=== PATIENT | male | born 1965 | race Caucasian/White ===

== ENCOUNTER 2020-05-11 15:10 | Inpatient (IN) | payer OTHER, SELFPAY ==
[2020-05-11] VITALS (23 sets, daily range): BP systolic 108–164; BP diastolic 24–113; PULSE 110–129; RESP 11–110; TEMP 37.1–38.2; O2SAT 94–100; BMI 21.2
--- NOTE | ~2020-05-11 | XR_ITS ---
EXAMINATION: XR chest 2V 05/11/2020 17:43 INDICATION: Weakness and lightheadedness. PROCEDURE: 2 view chest COMPARISON: No prior studies for comparison. FINDINGS: The lungs are clear. The cardiomediastinal silhouette is within normal limits. There are no pleural effusions. There is no pneumothorax suspected. IMPRESSION: 1: NO ACUTE CARDIOPULMONARY DISEASE. Reviewed, dictated and finalized at location A. NG COURT REPORTER
--- NOTE | ~2020-05-11 | CT_ITS ---
EXAMINATION: CT thoracic spine w con DATE: 05/13/2020 18:55 INDICATION: Mid back abscess. TECHNIQUE: Computed tomography (CT) of the thoracic spine was performed with 100 cc Omnipaque 350 int ravenous contrast. The dose-length product was 682.95 mGy-cm. Automated exposure control and iterativ e reconstruction technique were employed. COMPARISON: None FINDINGS: There is phlegmonous change of the back soft tissues in the area of clinical concern indica samia by overlying BB. No discrete walled off fluid collection is identified. There is a small right pl eural effusion with right lower lobe airspace disease which may represent atelectasis or pneumonia. V ertebral body heights are maintained. There is mild lower thoracic spondylosis. No osteolytic or oste oblastic lesions are identified. There are a few locules of gas contained in the area of phlegmonous change, likely from recent intervention. No significant spinal stenosis is identified. No focal abnor mal contrast enhancement of the spinal canal or cord. IMPRESSION: 1. Extensive soft tissue phlegmonous change overlying the thoracic spine with ill-defined margins, co mpatible with known infection. No discrete walled off fluid collection to suggest abscess. 2: No definite involvement of the spinal canal is identified. 3: Right lower lobe airspace disease may represent atelectasis and/or pneumonia. 4: Small right pleural effusion. Reviewed, dictated and finalized at location A. RINARY VIROLOGIST IMPRESSION: 1. Extensive soft tissue phlegmonous change overlying the thoracic spine with i ll-defined margins, compatible with known infection. No discrete walled off flu id collection to suggest abscess. 2: No definite involvement of the spinal canal is identified. 3: Right lower lobe airspace disease may represent atelectasis and/or pneumoni a. 4: Small right pleural effusion.
--- NOTE | ~2020-05-11 | US_ITS ---
US right upper quadrant INDICATION: Right upper quadrant pain PROCEDURE: Realtime right upper abdominal ultrasound. COMPARISON: No prior studies for comparison. FINDINGS: The pancreas is normal without focal mass or pancreatic ductal dilation. Liver echotexture is normal without focal mass or intrahepatic biliary dilatation. There is normal directional flow i n the portal vein. There are gallstones. Mild gallbladder wall thickening. Common bile duct measures 7.4 mm. Trace macy cholecystic fluid. Positive sonographic Malone's sign. IMPRESSION: 1: Cholelithiasis with mild gallbladder wall thickening, trace pericholecystic fluid and positive son ographic Malone's sign. Findings compatible with cholecystitis in the appropriate clinical setting. Reviewed, dictated and finalized at location B. T SHOP CHIEF CLERK IMPRESSION: 1: Cholelithiasis with mild gallbladder wall thickening, trace pericholecystic fluid and positive sonographic Malone's sign. Findings compatible with cholecys titis in the appropriate clinical setting.
--- NOTE | ~2020-05-11 | US_ITS ---
EXAMINATION: US venous doppler LE EXAM DATE: 05/12/2020 09:26 INDICATION: Bilateral leg edema. TECHNIQUE: Multiple grayscale, color flow and Doppler images of the lower extremity deep venous syste ms bilaterally were obtained and reviewed. There is no prior study for comparison. FINDINGS: Right side: The right common femoral, femoral and profunda veins demonstrate normal color flow, respi ratory variation, augmentation and compressibility. Compressibility, color flow confirmed within the right popliteal, posterior tibial, peroneal, and greater saphenous veins. Left side: The left common femoral, femoral and profunda veins demonstrate normal color flow, respira tory variation, augmentation and compressibility. Compressibility, color flow confirmed within the l eft popliteal, posterior tibial, peroneal, and greater saphenous veins. IMPRESSION: 1. No lower extremity deep venous thrombosis bilaterally. Reviewed, dictated and finalized at location D. GE AIDE
--- NOTE | ~2020-05-11 | CT_ITS ---
EXAMINATION: CT brain wo con EXAM DATE: 05/12/2020 11:40 INDICATION: Dysphasia. Lightheadedness. New onset weakness. Back abscess. TECHNIQUE: Spiral CT of the head was performed without contrast. Axial, coronal and sagittal images were reviewed. The dose-length product (DLP) for this examination was 605.33 mGy-cm. The exposure w as tailored according to patient size, and iterative reconstruction (ASIR) was used as additional dos e reduction technique. There is no prior study for comparison. FINDINGS: There is no acute intraparenchymal hemorrhage. No evidence of intraparenchymal brain mass lesion. No evidence of acute infarction. There is no mass effect or midline shift. The ventricles are normal in size. There are no extra-axial collections. There are no acute calvarial fractures. T he orbits are unremarkable. Soft tissue is unremarkable. Mild to moderate ethmoid mucoperiosteal th ickening. IMPRESSION: 1. No acute intracranial findings. Reviewed, dictated and finalized at location B. RVISOR LIVESTOCK YARD
--- NOTE | ~2020-05-11 | MR_ITS ---
EXAMINATION: MR cervical spine wo/w con DATE: 05/15/2020 13:29 INDICATION: Abscess of the posterior thorax. TECHNIQUE: Magnetic resonance imaging (MRI) of the cervical spine was performed without and with 14 m L MultiHance intravenous contrast. Sequences included sagittal and axial T2-weighted FSE, sagittal T2 -weighted FS FSE, and sagittal and axial T1-weighted FSE. Postcontrast sequences included sagittal an d axial T1-weighted FS FSE. COMPARISON: None FINDINGS: There is levoscoliosis of cervicothoracic spine. There is 2 mm retrolisthesis of C6 on C7. Vertebral body heights are normal. There is mildly decreased disc height at C6-C7. The spinal cord si gnal intensity is normal. The following disc levels are specifically discussed: C2-C3: The disc does not extend beyond the endplate margin. There is mild left uncovertebral joint os teoarthritis. There is moderate bilateral facet joint osteoarthritis. There is mild left neural garcía inal stenosis. There is no central canal stenosis. C3-C4: The disc does not extend beyond the endplate margin. There is mild left uncovertebral joint os teoarthritis. There is moderate bilateral facet joint osteoarthritis. There is mild left neural garcía inal stenosis. There is no central canal stenosis. C4-C5: The disc does not extend beyond the endplate margin. There is no uncovertebral joint osteoarth ritis. There is mild bilateral facet joint osteoarthritis. There is no neural foraminal stenosis. The re is no central canal stenosis. C5-C6: There is a right central protrusion. There is no uncovertebral joint osteoarthritis. There is mild left facet joint osteoarthritis. There is no neural foraminal stenosis. There is no central sunitha l stenosis. C6-C7: The disc is bulging. There is moderate bilateral uncovertebral joint osteoarthritis. There is mild right and moderate left facet joint osteoarthritis. There is mild bilateral neural foraminal bk nosis. There is mild central canal stenosis. C7-T1: The disc does not extend beyond the endplate margin. There is no uncovertebral joint osteoarth ritis. There is moderate bilateral facet joint osteoarthritis. There is mild bilateral neural foramin al stenosis. There is no central canal stenosis. IMPRESSION: 1. Mild cervical spondylosis. Reviewed, dictated and finalized at location A. ND WORKER
--- NOTE | ~2020-05-11 | MR_ITS ---
EXAMINATION: MR thoracic spine wo/w con DATE: 05/15/2020 13:29 INDICATION: Abscess of the posterior thorax. TECHNIQUE: Magnetic resonance imaging (MRI) of the thoracic spine was performed without and with 14 m L MultiHance intravenous contrast. Sequences included sagittal and axial T2-weighted FSE, sagittal T2 -weighted FS FSE, and sagittal and axial T1-weighted FSE. Postcontrast sequences included sagittal an d axial T1-weighted FS FSE. COMPARISON: Thoracic spine CT 05/13/2020 FINDINGS: There are small pleural effusions, right worse than left. There is 10 degrees levoscoliosis of thoracic spine. There is mild chronic anterior wedging of T8 and T9 vertebral bodies. There are S chmorl's nodes at multiple levels. There is mildly decreased disc height at T8-T9 and T9-T10. At T4-T 5, there is a left central extrusion with mild central canal stenosis. At T6-T7 and T7-T8, there are central extrusions with mild central canal stenosis. There is multilevel mild facet joint osteoarthri tis. No neural foraminal stenosis. In the posterior thorax, there is a large distribution of subcutan eous fat stranding and contrast enhancement, consistent with cellulitis. There is thickening of right trapezius muscle with increased T2-weighted signal intensity and contrast enhancement, consistent wi th myositis. There is a skin defect to the right of midline at T9-T10. Subjacent to the skin defect, there is an infiltrative distribution of nonenhancing subcutaneous fat measuring 5.2 x 2.3 x 8.5 cm, consistent with necrosis. IMPRESSION: 1. Extensive distribution of subcutaneous cellulitis in the posterior thorax and myositis in right tr apezius muscle. An infiltrative distribution of nonenhancing subcutaneous fat deep to the skin defect is consistent with necrosis, but the degree to which the necrosis is drainable is uncertain. 2. Small pleural effusions. 3. Mild thoracic spondylosis. Reviewed, dictated and finalized at location A. NG TIER IMPRESSION: 1. Extensive distribution of subcutaneous cellulitis in the posterior thorax an d myositis in right trapezius muscle. An infiltrative distribution of nonenhanc ing subcutaneous fat deep to the skin defect is consistent with necrosis, but t he degree to which the necrosis is drainable is uncertain. 2. Small pleural effusions. 3. Mild thoracic spondylosis.
--- NOTE | ~2020-05-11 | MR_ITS ---
EXAMINATION: MR lumbar spine wo/w con DATE: 05/15/2020 13:27 INDICATION: Abscess of the back. TECHNIQUE: Magnetic resonance imaging (MRI) of the lumbar spine was performed without and with 14 mL MultiHance intravenous contrast. Sequences included sagittal T2-weighted FSE, sagittal T2-weighted FS FSE, and sagittal and axial T1-weighted FSE. Postcontrast sequences included axial T2-weighted FSE a nd axial and sagittal T1-weighted FS FSE. COMPARISON: None FINDINGS: Bone alignment is normal. Vertebral body heights and intervertebral disc heights are normal . The discs do not extend beyond the endplate margins. There is multilevel facet joint osteoarthritis , severe on the right at L4-L5 and L5-S1. No neural foraminal stenosis or central canal stenosis. The re is extensive edema and enhancement of the subcutaneous fat and bilateral erector spinae muscles, c onsistent with cellulitis and myositis. There is no coalescence of the areas of hypoenhancing or none nhancing subcutaneous fat to suggest a significant drainable component. IMPRESSION: 1. Extensive cellulitis of the subcutaneous fat and extensive myositis involving the bilateral erecto r spinae muscles. No coalescence of the hypoenhancing and nonenhancing areas of subcutaneous fat to s uggest a significant drainable component. Reviewed, dictated and finalized at location A. K MANAGER IMPRESSION: 1. Extensive cellulitis of the subcutaneous fat and extensive myositis involvin g the bilateral erector spinae muscles. No coalescence of the hypoenhancing and nonenhancing areas of subcutaneous fat to suggest a significant drainable comp onent.
--- NOTE | ~2020-05-11 | US_ITS ---
EXAMINATION: US carotid duplex BI DATE: 05/12/2020 15:32 INDICATION: Dysphasia. TECHNIQUE: Grayscale, color Doppler, and pulsed Doppler images of the cervical carotid arteries were obtained. The degree of vessel stenosis is placed in one of the following categories: normal, <50%, 5 0-69%, >=70% but less than near-occlusion, near-occlusion, or total occlusion. Note that percent sten osis relative to normal distal artery lumen diameter is indirectly measured from velocity measurement s as described by Sebastian, et al. Radiology 2003; [id number]. COMPARISON: None. FINDINGS: RIGHT: The right common carotid artery (CCA) peak systolic velocity (PSV) is 122 cm/s. The right internal ca rotid artery (ICA) PSV is 80 cm/s. The right ICA end-diastolic velocity (EDV) is 23 cm/s. The right I CA/CCA PSV ratio is 0.7. Grayscale and color Doppler images yield an estimate of <50% diameter reduct ion from plaque in the ICA. There is antegrade flow in the right vertebral artery. LEFT: The left CCA PSV is 157 cm/s. The left ICA PSV is 55 cm/s. The left ICA EDV is 15 cm/s. The left ICA/ CCA PSV ratio is 0.5. Grayscale and color Doppler images yield an estimate of <50% diameter reduction from plaque in the ICA. There is antegrade flow in the left vertebral artery. IMPRESSION: 1. <50% stenosis in the right internal carotid artery. 2. <50% stenosis in the left internal carotid artery. Reviewed, dictated and finalized at location A. A MARKETING MANAGER
--- NOTE | 2020-05-11 16:11 | ED.WOUNDLAC ---
HPI - Wound/Laceration General Chief Complaint: Wound/Laceration Stated Complaint: Boil on Back Time Seen by Provider: 05/11/20 16:01 Source: patient Mode of arrival: ambulatory Limitations: no limitations History of Present Illness HPI narrative: Patient is a 54-year-old male who presents complaining of an abscess to his back x1 week. He reports it started very small and has doubled in size and tenderness x1 day. Denies known drainage. Patient has had a history of abscesses in the past and had surgical removal and debridement of abscess to right hip with skin grafting and wound VAC last year. He reports 4-month stay in the hospital. He also reports history of diabetes and 60 pound weight loss in the past year along with generalized weakness, neuropathy and dizziness. Patient reports he does not have a PCP but is scheduled for a new team at the [facility] with first appointment tomorrow. Patient reports seeing urgent care earlier today and they reported they were not draining abscess as he felt he needed surgical intervention. Patient also has a history of psoriasis and is complaining of discomfort to back. He denies taking [id number]-[id number] medications at this time. Related Data Allergies Allergy/AdvReac Type Severity Reaction Status Date / Time No Known Allergies Allergy Verified 05/11/20 15:56 Review of Systems Review of Systems: Narrative: CONSTITUTIONAL: Denies fever, chills, or sweats. EYES: Denies visual changes, redness, or discharge. ENT: Denies rhinorrhea, congestion, sore throat, or otalgia. CARDIOVASCULAR: Denies chest pain, palpitations, or edema. RESPIRATORY: Denies cough or dyspnea. GASTROINTESTINAL: Denies abdominal pain, nausea, vomiting, or diarrhea. GENITOURINARY: Denies dysuria or hematuria. SKIN: Reports abscess to back MUSCULOSKELETAL: Denies back pain, joint pain, or myalgia. NEUROLOGIC: Denies headache, numbness, dizziness, or weakness. PSYCHIATRIC: Denies anxiety or depression. [facility] Past Medical History Medical History Abscess Diabetes Encounter for debridement of skin Encounter for management of vacuum-assisted closure (VAC) of wound Gall stones HTN (hypertension) Neuropathy Weight loss Surgical History Surgical History H/O skin graft Family History Family History Other Heart disease Social History Social History Smoking status: Current every day smoker Alcohol intake: current Alcohol use details: occasional Substance use: never Living arrangements: alone Occupation/Education: unemployed Exam Narrative: Exam Narrative: GENERAL: Well-developed, alert and in no acute distress. HEAD: Normocephalic, atraumatic. EYES: Conjunctiva are normal. ENT: Mucous membranes pink and moist. CHEST: No respiratory distress. Clear to auscultation. HEART: Regular rate and rhythm. GI: Soft, nontender without rebound, or guarding. No distention. Bowel sounds normal in all quadrants. MUSCULOSKELETAL: No bony tenderness. EXTREMITIES: Normal range of motion. No edema. SKIN: Approximate 8 cm abscess to right back, erythema and edema noted, tenderness with palpation NEURO: No focal deficits. Alert and oriented x3. Gait steady. PSYCH: Normal affect. No signs of depression or anxiety. Course Reevaluation(s) Reevaluation #1: Discussed with Dr. Freitas who ultrasounded abscess on patient's back, decision made to attempt drainage her ultrasound results. Approximate 1.5 cm incision made, small amount of drainage noted, wound packed at this time. Date: 05/11/20 Time: 18:14 Consultations Consultation #1: Spoke with Dr. Guerrero for consult on abscess. Patient to be made NPO at midnight as discussed with Dr. Guerrero. Date: 05/11/20 Time: 19:28 Vital Signs Vital signs: Vital Signs
--- NOTE | 2020-05-11 16:53 | PC.NURSE ---
BEEF BONER AT BEDSIDE FOR I&D
--- NOTE | 2020-05-11 17:17 | PC.NURSE ---
verbal order from ERIN Barba for 1G Ofirmev iv stat for fever of 100.7
[2020-05-11 17:28] LABS: Basophils Absolute Auto 0.1 K/mm3 (0.0-0.1); Basophils Percent Auto 0.5 % (0.2-1.2); Eosinophils Absolute Auto 0.3 K/mm3 (0-0.3); Eosinophils Percent Auto 1.6 % (0-4.4); Hematocrit 43.1 % (42.0-52.0); Hemoglobin 14.6 g/dL (14.0-18.0); Immature Granulocyte Absolute 0.12 K/mm3 (0.00-0.031); Immature Granulocyte Percent A 0.7 % (0-0.5); Lymphocytes Absolute Auto 0.85 K/mm3 (0.9-3.2); Lymphocytes Percent Auto 5.1 % (18.3-44.2); Mean Corpuscular HGB Conc 33.9 g/dl (32-36); Mean Corpuscular Hemoglobin 31.1 pg (26-34); Mean Corpuscular Volume 91.9 fl (80-100); Monocytes Absolute Auto 1.2 K/mm3 (0.1-0.6); Neutrophils Absolute Auto 14.2 K/mm3 (1.3-6.7); Neutrophils Percent Auto 85.1 % (45.5-73.1); Platelet Count Result 213 k/mm3 (150-375); Red Blood Count 4.69 M/mm3 (4.6-6.20); Red Cell Distribution Width 11.9 % (11.5-14.5); White Blood Count 16.7 K/mm3 (4.5-10.0)
[2020-05-11 17:34] LABS: Alanine Aminotransferase 14 U/L (4-50); Albumin Level 3.9 g/dL (3.5-5.1); Alkaline Phosphatase 115 U/L (38-126); Anion Gap 11 mmol/L (8-16); Aspartate Amino Transferase 22 U/L (17-59); Bilirubin,Total 0.7 mg/dL (0.2-1.3); Blood Urea Nitrogen 22 mg/dL (9-20); Calcium 9.7 mg/dL (8.4-10.2); Carbon Dioxide 23 mmol/L (22-30); Chloride 96 mmol/L (98-107); Estimated CRCL calculation 95 ml/min; Estimated Glomerular Filt Rate > 60; Glucose 358 mg/dL (75-110); Sodium 130 mmol/L (137-145)
--- NOTE | 2020-05-11 17:34 | PC.NURSE ---
PT UNABLE TO PROVIDE URINE SAMPLE, REFUSING CATH.
--- NOTE | 2020-05-11 17:58 | PC.NURSE ---
PT C/O ACID REFLUX, IP LITIGATION ASSOCIATE YODIT VERBAL ORDER FOR STAT IVP FAMOTIDINE 20MG.
--- NOTE | 2020-05-11 17:58 | PC.NURSE ---
DRY COLOR MIXER YODIT AND EDP NAST AT BEDSIDE.
[2020-05-11] MEDS: FAMOTIDINE 20 MG/2 ML VIAL IV PUSH (18:07)
--- NOTE | 2020-05-11 18:08 | PC.NURSE ---
This RN at bedside with EDP Nast and CERTIFIED SURGICAL TECHNOLOGIST Jameson for second attempt I&D.
[2020-05-11 18:14] LABS: Lactic Acid Reflex 1.7 mmol/L (0.7-2.1)
--- NOTE | 2020-05-11 18:20 | PC.NURSE ---
per julita torres nursing sup at [facility]
[2020-05-11 19:52] LABS: Add Urine Microscopic? YES; Appearance Urine Clear (Clear); Bilirubin Urine Negative (Negative); Blood Urine Negative (Negative); Color Urine Yellow (Yellow); Glucose Urine UA 3+ mg/dL (Negative); Ketones Urine 1+ mg/dL (Negative); Leukocyte Esterase Ur Negative LEU/UL (Negative); Mucus Urine Rare /lpf; Nitrate Urine Negative (Negative); Protein Urine 2+ mg/dL (Negative); RBC Urine 0-2 /hpf (0-2); Specific Grav Ur 1.029 (1.001-1.035); Urobilinogen Urine Negative mg/dL (<2.0); WBC Urine 0-3 /hpf
--- NOTE | 2020-05-11 20:00 | PM.IMHP ---
H&P: HPI History of Present Illness Date/Time: 05/11/20 20:00 Chief Complaint: ?Boil on back.? Narrative: This is a 54-year-old male with poorly controlled insulin-dependent type 2 diabetes mellitus, psoriasis, and history of MRSA skin and soft tissue infection who presented to the emergency department earlier today via private vehicle from home for evaluation of a ?boil on back.? About a week ago he noticed a small boil in the middle of his back which has rapidly progressed in size. He was seen at urgent care today and they referred him to the emergency department as the area in question apparently is now measuring approximately 8 cm in size. With further questioning he had a similar area on his left hip sometime last year and was hospitalized at the [facility] in [place] with a large MRSA infection, requiring multiple debridements, wound VAC, and ultimate skin graft. He admits that he tends to pick and scratch at his skin, including this boil, and thinks that is why it has gotten so big. It was incised and drained in the emergency department and reportedly 20 mL of purulent drainage was expressed and sent for culture. The tight pain that he felt that the site has improved significantly with I and D and he has no specific complaints at the time my evaluation. He specifically denies fever, chills, sweats, nausea, and vomiting. Review of Systems Review of Systems: Narrative: Twelve systems were reviewed with pertinent positives and negatives as per HPI. He has lost about 70 lb in the little over a year unintentionally. Reports forming cataract. It sounds as though his diabetes has been poorly controlled for at least that long, if not longer. He does not check his glucose at home very often and frequently has blurry vision, polydipsia, and polyuria. He suffers from neuropathy in his hands, feet, and legs. Additionally he thinks he has neuropathy on his chest but it sounds like he may have post herpetic neuralgia by description, as he had shingles in this area not long ago. He feels off balance when ambulating, possibly due to the neuropathy, and reports that it has been worse since his 4 month hospitalization last year in [place] with the left hip infection. He gets lightheaded and dizzy quite frequently and has ?fainting spells?, but none in the last several weeks. He has not had chest pain, palpitations, pleuritic pain, or shortness of breath. No cold or flu symptoms. He denies nausea, vomiting, and diarrhea. He does have cholelithiasis and occasionally has gallbladder attacks. Additionally he reports bilateral inguinal hernias. [facility] or hernias until his psoriasis and diabetes are better controlled. He has been having issues with depression due to COVID restrictions, and reports having a suicidal ideation in April 2019. With treatment he has improved and denies harmful thoughts. Except as documented, all other systems were reviewed and are negative. [facility] Past Medical History Medical History (Updated 05/11/20 @ 22:01 by Chela Segura PA-C) Bilateral inguinal hernia Cholelithiasis Diabetic peripheral neuropathy Hypertension Insulin dependent type 2 diabetes mellitus MRSA infection (~2019) Skin and soft tissue infection about the left hip requiring several debridements, wound VAC, and ultimate skin graft. Psoriasis Surgical History Surgical History (Updated 05/11/20 @ 21:50 by Chela Segura PA-C) History of skin graft (~2019) Status post debridement (~2019) Left hip MRSA infection. Family History Family History (Updated 05/11/20 @ 21:50 by Chela Segura PA-C) Mother Heart disease Social History Social History (Updated 05/11/20 @ 21:51 by Chela Segura PA-C) Social History: Surrogate decision maker: Sean Ascencio, brother. Code status: Full code. Smoking status: Former smoker Alcohol intake: current Alcohol use details: Rare alcohol use on social occas
[2020-05-11 20:38] LABS: Glucose Point of Care 347 (65-105)
--- NOTE | 2020-05-11 22:03 | ADMGEN ---
This patient, Rudy Ascencio, was admitted to Medical Room 345-01. Patient/family oriented to hospital policies and general routines including ID bracelet, bed and alarms, visiting hours, pain management, procedures, bathroom and other care routines, personal items, smoking policy, room service/diet, and visiting hours. Information on how to activate the Rapid Response Team has been discussed. Patient/Family are encouraged to report perceived risks to care and to ask questions if they do not understand what they are told or what they should do.
[2020-05-12 00:32] LABS: Glucose Point of Care 480 (65-105)
[2020-05-12] MEDS: HYDROcodone/acetaminophen (*CRX) 5-325 MG TABLET 1 TAB PO ×3 (00:35→18:28)
[2020-05-12 00:36] VITALS: PULSE 113
[2020-05-12] MEDS: carvediloL 3.125 MG TABLET PO ×3 (00:36→20:05)
[2020-05-12] MEDS: MELATONIN 3 MG TABLET 9 MG PO ×2 (00:36→20:05)
[2020-05-12 00:49] LABS: Hemoglobin A1C 11.5 % (<5.7)
[2020-05-12 04:55] VITALS: BP 124/70; PULSE 104; RESP 16; TEMP 36.3; O2SAT 98
[2020-05-12] MEDS: INSULIN GLARGINE (*BKC) 100 UNITS/ML 10 UNITS SUB-Q (05:27)
[2020-05-12] MEDS: INSULIN ASPART (*BKC) 100 UNITS/ML 6 UNITS SUB-Q (05:28)
[2020-05-12 06:21] LABS: Anion Gap 7 mmol/L (8-16); Blood Urea Nitrogen 22 mg/dL (9-20); CRP 24.2 mg/dL (<1.0); Calcium 8.8 mg/dL (8.4-10.2); Carbon Dioxide 24 mmol/L (22-30); Chloride 99 mmol/L (98-107); Estimated CRCL calculation 86 ml/min; Estimated Glomerular Filt Rate > 60; Glucose 447 mg/dL (75-110); Magnesium 1.8 mg/dL (1.6-2.3); Potassium 4.5 mmol/L (3.4-5.0); Sodium 130 mmol/L (137-145)
[2020-05-12 06:37] LABS: Mean Corpuscular HGB Conc 34.4 g/dl (32-36); Mean Corpuscular Hemoglobin 31.2 pg (26-34); Mean Corpuscular Volume 90.7 fl (80-100); Mean Platelet Volume 10.4 fl (7.4-10.4); Platelet Count Result 189 k/mm3 (150-375); Red Blood Count 3.53 M/mm3 (4.6-6.20); Red Cell Distribution Width 11.7 % (11.5-14.5); White Blood Count 16.1 K/mm3 (4.5-10.0)
[2020-05-12 07:12] LABS: Thyroid Stimulating Hormone Reflex 0.653 uIU/mL (0.465-4.68)
[2020-05-12 07:45] LABS: Glucose Point of Care 338 (65-105)
[2020-05-12] MEDS: PREGABALIN (*CRX) 75 MG CAPSULE 150 MG PO (08:39)
[2020-05-12] MEDS: metFORMIN HCL 500 MG TABLET PO (08:39)
[2020-05-12 08:40] VITALS: PULSE 97
[2020-05-12] MEDS: QUEtiapine FUMARATE 100 MG TABLET PO (08:40)
[2020-05-12] MEDS: DULoxetine HCL 60 MG CAPSULE.DR PO (08:40)
[2020-05-12] MEDS: PANTOPRAZOLE SOD SESQUIHYDRATE 20 MG TAB PO (08:40)
[2020-05-12] MEDS: INSULIN ASPART (*BKC) 100 UNITS/ML SUB-Q ×3 (08:42→17:25)
--- NOTE | 2020-05-12 08:43 | PM.CNGS ---
Assessment and Plan Assessment and plan (1) Abscess of back: Code(s): L02.212 - Cutaneous abscess of back [any part, except buttock] Status: Acute Assessment and Plan: cont local wound care, await cx, cont abx (2) Insulin dependent type 2 diabetes mellitus: Code(s): E11.9 - Type 2 diabetes mellitus without complications; Z79.4 - bed bug exterminator (current) use of insulin Status: Acute Assessment and Plan: tight bs control History of Present Illness Consult details Consult date: 05/12/20 Reason for consult: wound care Requesting physician: Hortencia Herron PA-C Narrative: Pt is a 54 y/o M c multiple med issues including poorly controlled DM presenting c large abscess of mid back. Pt reports abscess has been progressively worsening over last wk. Pt reports it has grown significantly in size and is quite painful. Pt had I and D in ED yesterday and reports pressure/pain is much improved. Pt had abscess in L hip about a year ago that ended up needing multiple debridements and subsequent skin graft. Pt reports previous abscess was confirmed MRSA. Review of Systems Constitutional: Constitutional: Denies anorexia, Denies chills, Reports fatigue, Denies fever(s), Reports lethargy, Denies malaise, Denies poor appetite, Reports weakness, Denies weight gain and Denies weight loss Eyes: Eyes: Reports no additional eye complaints ENT: Reports system reviewed and no additional complaints, except as documented Cardiovascular: Cardiovascular: Reports no additional cardiovascular complaints Respiratory: Respiratory: Reports no additional respiratory complaints Gastrointestinal: Gastrointestinal: Reports no additional gastrointestinal complaints Genitourinary: Genitourinary: Reports no additional male genitourinary complaints Musculoskeletal: Musculoskeletal: Reports as per HPI Integumentary/Breasts: Skin/Breast: Reports as per HPI Neurologic: Reports system reviewed and no additional complaints, except as documented Psychiatric: Psychiatric: Reports no additional psychiatric complaints Endocrine: Endocrine: Reports no additional endocrine complaints Hematologic/Lymphatic: Hematologic/Lymphatic: Reports no additional hematologic/lymphatic complaints Allergic/Immunologic: Allergic/Immunologic: Reports no additional allergic/immunologic complaints [facility] Past Medical History Medical History Bilateral inguinal hernia Cholelithiasis Diabetic peripheral neuropathy Hypertension Insulin dependent type 2 diabetes mellitus MRSA infection (~2019) Skin and soft tissue infection about the left hip requiring several debridements, wound VAC, and ultimate skin graft. Psoriasis Surgical History Surgical History History of skin graft (~2019) Status post debridement (~2019) Left hip MRSA infection. Family History Family History Mother Heart disease COPD (chronic obstructive pulmonary disease) Social History Social History Social History: Surrogate decision maker: Sean Ascencio, brother. Code status: Full code. Smoking status: Former smoker Alcohol intake: former Alcohol use details: Rare alcohol use on social occasions, and moderation. Substance use: never Living arrangements: alone Additional living arrangements comments: Resides in [place]. Occupation/Education: unemployed Additional occupation/education comments: Currently unemployed. 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 Gender identity (if verbalized by the patient): Male Sexual Orientation (if Verbalized by the Patient): Straight or Heterosexual Spiritual care concerns: No Meds Home Medications and Allergies Home Medications Medication Instructions Recorded Confirmed Type ac
[2020-05-12 09:51] LABS: Glucose Point of Care 300 (65-105)
--- NOTE | 2020-05-12 11:03 | P.PNIM_ITS ---
Progress Note: A&P Assessment and Plan (1) Sepsis: Code(s): A41.9 - Sepsis, unspecified organism Status: Acute Assessment and Plan: The patient meets sepsis criteria on admission with tachycardia, fever, and le ukocytosis in the setting of infection secondary to absess of back. Lactic acid levels within normal limits. T-max of 100.7?. He has been afebrile today. * Continue IV antibiotics for abscess * Blood cultures pending. * Monitor vital signs closely and trend labs * Resume IV fluids (2) Abscess of back: Code(s): L02.212 - Cutaneous abscess of back [any part, except buttock] Status: Acute Assessment and Plan: Approximately 8 cm. S/p I&D in emergency department on 05/11/2020. Continues to endorse pain but reports improvement. He does have a history of skin abscesses with confirmed MRSA infection. * Wound cultures were collected during incision and drainage and are pending * Appreciate general surgery consultation. * Continue imipenem and vancomycin per antibiotic stewardship recommendations for suspected MRSA coverage given history. * Analgesics available as needed for pain (3) Episode of generalized weakness: Code(s): R53.1 - Weakness Status: Acute Assessment and Plan: Patient had sudden, acute onset of generalized weakness and lethargy as well as dysphasia. Please see interval history below for further details. Etiology not clear at this time. Acute CVA considered, though no focal neuro deficits noted. * Obtain stat head CT. Await results for further intervention/planning. Consider neurology consultation based on results * Stat EKG * Check TSH, B12, folate, ammonia, HIV * He will need PT/OT but will await further information at this time. * IV fluid rehydration. (4) Insulin dependent type 2 diabetes mellitus: Code(s): E11.9 - Type 2 diabetes mellitus without complications; Z79.4 - ore tester (current) use of insulin Status: Acute Assessment and Plan: Poorly controlled. A1c 11.5 (05/11/2020). Blood sugars evaluated and have been as high as 480. No anion gap. Urine ketones 1+ on 05/11/20. * Continue Accu-Cheks a.c. HS, high dose SSI, and hypoglycemic protocol * Initiate Lantus qHS * Monitor blood sugar trends. Can consider addition of scheduled NovoLog with meals. * Check beta hydroxybutyrate * Strict glycemic control is imperative for wound healing. (5) Hypertension: Code(s): I10 - Essential (primary) hypertension Status: Inactive Assessment and Plan: Blood pressure evaluated and has been well controlled today. Last BP 124/70. * Continue Coreg (6) Weight loss: Code(s): R63.4 - Abnormal weight loss Status: Acute Assessment and Plan: Patient reports unintentional 70 lb weight loss in 1 year. Etiology unclear at this time. He reports no changes in his diet. * Check TSH, HIV, fecal occult blood * CXR with no concerning findings. Will consider CT abdomen/pelvis based on results of labs (7) Normocytic anemia: Code(s): D64.9 - Anemia, unspecified Status: Acute Assessment and Plan: Hemoglobin and hematocrit stable upon presentation with decline today. Vital signs are stable. No signs of acute bleeding. * Monitor H&H closely and transfuse as needed * Will check occult blood, B12, folate, and iron panel (8) Lower extremity edema: Code(s): R60.0 - Localized edema Status: Acute Assessment and Plan: No significant edema junior
--- NOTE | 2020-05-12 11:03 | PM.IMPN ---
Progress Note: A&P Assessment and Plan (1) Sepsis: Code(s): A41.9 - Sepsis, unspecified organism Status: Acute Assessment and Plan: The patient meets sepsis criteria on admission with tachycardia, fever, and leukocytosis in the setting of infection secondary to absess of back. Lactic acid levels within normal limits. T-max of 100.7?. He has been afebrile today. Continue IV antibiotics for abscess Blood cultures pending. Monitor vital signs closely and trend labs Resume IV fluids (2) Abscess of back: Code(s): L02.212 - Cutaneous abscess of back [any part, except buttock] Status: Acute Assessment and Plan: Approximately 8 cm. S/p I&D in emergency department on 05/11/2020. Continues to endorse pain but reports improvement. He does have a history of skin abscesses with confirmed MRSA infection. Wound cultures were collected during incision and drainage and are pending Appreciate general surgery consultation. Continue imipenem and vancomycin per antibiotic stewardship recommendations for suspected MRSA coverage given history. Analgesics available as needed for pain (3) Episode of generalized weakness: Code(s): R53.1 - Weakness Status: Acute Assessment and Plan: Patient had sudden, acute onset of generalized weakness and lethargy as well as dysphasia. Please see interval history below for further details. Etiology not clear at this time. Acute CVA considered, though no focal neuro deficits noted. Obtain stat head CT. Await results for further intervention/planning. Consider neurology consultation based on results Stat EKG Check TSH, B12, folate, ammonia, HIV He will need PT/OT but will await further information at this time. IV fluid rehydration. 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 A1c 11.5 (05/11/2020). Blood sugars evaluated and have been as high as 480. No anion gap. Urine ketones 1+ on 05/11/20. Continue Accu-Cheks a.c. HS, high dose SSI, and hypoglycemic protocol Initiate Lantus qHS Monitor blood sugar trends. Can consider addition of scheduled NovoLog with meals. Check beta hydroxybutyrate Strict glycemic control is imperative for wound healing. (5) Hypertension: Code(s): I10 - Essential (primary) hypertension Status: Inactive Assessment and Plan: Blood pressure evaluated and has been well controlled today. Last BP 124/70. Continue Coreg (6) Weight loss: Code(s): R63.4 - Abnormal weight loss Status: Acute Assessment and Plan: Patient reports unintentional 70 lb weight loss in 1 year. Etiology unclear at this time. He reports no changes in his diet. Check TSH, HIV, fecal occult blood CXR with no concerning findings. Will consider CT abdomen/pelvis based on results of labs (7) Normocytic anemia: Code(s): D64.9 - Anemia, unspecified Status: Acute Assessment and Plan: Hemoglobin and hematocrit stable upon presentation with decline today. Vital signs are stable. No signs of acute bleeding. Monitor H&H closely and transfuse as needed Will check occult blood, B12, folate, and iron panel (8) Lower extremity edema: Code(s): R60.0 - Localized edema Status: Acute Assessment and Plan: No significant edema appreciated on my exam. Venous Doppler negative for DVT bilaterally. (9) Psoriasis: Code(s): L40.9 - Psoriasis, unspecified Status: Acute Assessment and Plan: He has multiple psoriatic plaques. He needs outpatient dermatology follow-up. Subjective Date/time seen: 05/12/20 11:03 Interval history: Date of service: 05/12/2020 Rudy Ascencio is a 54 year male with a history of poorly controlled insulin dependent type
--- NOTE | 2020-05-12 11:17 | ECG_ITS ---
Measurements Intervals [place] Rate: 96 P: 65 GA: 134 QRS: 65 QRSD: 97 T: 40 QT: 353 QTc: 448 Interpretive Statements SINUS RHYTHM BASELINE WANDER- AVF NORMAL ECG Electronically Signed On 05-12-2020 11:56:55 [employer] by Devin Holt D.O.
[2020-05-12] MEDS: SODIUM CHLORIDE 0.9% IV 500 ML 125 ML IV CONT (11:59)
[2020-05-12 12:04] LABS: Ammonia < 9 umol/L (9-30)
[2020-05-12 12:10] LABS: Glucose Point of Care 245 (65-105)
[2020-05-12 12:49] LABS: HIV 1/2 Ab P24 Ag Result Negative (Negative)
[2020-05-12 13:20] LABS: Iron 11 ug/dL (49-181)
[2020-05-12 13:27] LABS: Beta-Hydroxybutyrate/Acetoacetate 0.74 mmol/L (0.02-0.27)
[2020-05-12 13:33] LABS: Percent Iron Saturation 5 % (20-50)
--- NOTE | 2020-05-12 13:57 | WPDNEURCNPN ---
Assessment and Plan Assessment and plan (1) Episode of generalized weakness: Code(s): R53.1 - Weakness Status: Acute (2) Insulin dependent type 2 diabetes mellitus: Code(s): E11.9 - Type 2 diabetes mellitus without complications; Z79.4 - terminal carman (current) use of insulin Status: Acute (3) Psoriasis: Code(s): L40.9 - Psoriasis, unspecified Status: Acute (4) Abscess of back: Code(s): L02.212 - Cutaneous abscess of back [any part, except buttock] Status: Acute Additional Plan diabetic with poor control even though insulin-dependent and now with the infection treatment accordingly has been started will obtain the MRI of the thoracic spine to roll out the extension into the bone Consult date: 05/12/20 Time Seen: 13:00 HPI: Rudy Ascencio is a 54 year old male Admitted to the hospital with the complaints of boil on the back. Patient carries the diagnosis of uncontrolled insulin-dependent type 2 diabetes mellitus with 1. Psoriasis 2. Diabetic peripheral neuropathy 3. Hypertension 4. History of skin grafting in the past along with debridement for the left hip MRSA infection. Evaluation up until now include CBC with WBC 16.1 hemoglobin 11.0 platelet count 189, [place] 130 BUN 22 blood sugar of 447, serum iron only 11 binding capacity 215 saturation only 5 and ammonia less than 9 but CRP 24.2, HIV negative CT of the head negative, and Doppler of lower extremities negative for DVT patient already seen by general surgeon for abscess of the back for which local care has been started Review of Systems Review of Systems: All systems reviewed & are unremarkable except as noted in HPI and below PMFSH Past Medical History Medical History Bilateral inguinal hernia Cholelithiasis Diabetic peripheral neuropathy Hypertension Insulin dependent type 2 diabetes mellitus MRSA infection (~2019) Skin and soft tissue infection about the left hip requiring several debridements, wound VAC, and ultimate skin graft. Psoriasis Surgical History Surgical History History of skin graft (~2019) Status post debridement (~2019) Left hip MRSA infection. Family History Family History Mother Heart disease COPD (chronic obstructive pulmonary disease) Social History Social History Social History: Surrogate decision maker: Sean Ascencio, brother. Code status: Full code. Smoking status: Former smoker Alcohol intake: former Alcohol use details: Rare alcohol use on social occasions, and moderation. Substance use: never Living arrangements: alone Additional living arrangements comments: Resides in [place]. Occupation/Education: unemployed Additional occupation/education comments: Currently unemployed. 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 Gender identity (if verbalized by the patient): Male Sexual Orientation (if Verbalized by the Patient): Straight or Heterosexual Spiritual care concerns: No Meds Home Medications and Allergies Home Medications Medication Instructions Recorded Confirmed Type acetaminophen [Tylenol] 650 mg PO PRN PRN 05/11/20 05/11/20 History apremilast 30 mg PO BID 05/11/20 05/11/20 History carvedilol 3.125 mg PO Q12H 05/11/20 05/11/20 History duloxetine 60 mg PO DAILY 05/11/20 05/11/20 History ibuprofen 600 mg PO Q6H PRN 05/11/20 05/11/20 History melatonin 9 mg PO QPM 05/11/20 05/11/20 History metformin 500 mg PO DAILY 05/11/20 05/11/20 History omeprazole 20 mg PO DAILY 05/11/20 05/11/20 History pregabalin 150 mg PO DAILY 05/11/20 05/11/20 History quetiapine [Seroquel] 100 mg PO DAILY 05/11/20 05/11/20 History Allergies Allergy/AdvReac Type Severity Reaction Status Date / Time No Known Allergies Allergy Verified 05/11/20 15:56 Vi
[2020-05-12 14:00] VITALS: BP 113/59; PULSE 95; RESP 16; TEMP 36.7; O2SAT 96
[2020-05-12 17:17] LABS: Glucose Point of Care 297 (65-105)
[2020-05-12 20:05] VITALS: PULSE 94
[2020-05-12] MEDS: INSULIN GLARGINE (*BKC) 100 UNITS/ML 11 UNITS SUB-Q (20:06)
[2020-05-12 20:09] VITALS: BP 135/58; PULSE 94; RESP 14; TEMP 36.7; O2SAT 99
[2020-05-12 20:28] LABS: Glucose Point of Care 362 (65-105)
[2020-05-13] VITALS (7 sets, daily range): BP systolic 139–147; BP diastolic 64–73; PULSE 86–97; RESP 14–16; TEMP 36–36.4; O2SAT 93–100
[2020-05-13] MEDS: HYDROcodone/acetaminophen (*CRX) 5-325 MG TABLET 1 TAB PO ×3 (06:07→22:39)
[2020-05-13 07:50] LABS: Basophils Absolute Auto 0.1 K/mm3 (0.0-0.1); Basophils Percent Auto 0.4 % (0.2-1.2); Eosinophils Absolute Auto 0.4 K/mm3 (0-0.3); Eosinophils Percent Auto 3.5 % (0-4.4); Hematocrit 32.5 % (42.0-52.0); Hemoglobin 11.2 g/dL (14.0-18.0); Immature Granulocyte Absolute 0.09 K/mm3 (0.00-0.031); Immature Granulocyte Percent A 0.7 % (0-0.5); Lymphocytes Absolute Auto 0.95 K/mm3 (0.9-3.2); Lymphocytes Percent Auto 7.7 % (18.3-44.2); Mean Corpuscular HGB Conc 34.5 g/dl (32-36); Mean Corpuscular Hemoglobin 31.1 pg (26-34); Mean Corpuscular Volume 90.3 fl (80-100); Mean Platelet Volume 10.5 fl (7.4-10.4); Monocytes Absolute Auto 1.1 K/mm3 (0.1-0.6); Monocytes Percent Auto 8.6 % (2.6-8.5); Neutrophils Absolute Auto 9.8 K/mm3 (1.3-6.7); Neutrophils Percent Auto 79.1 % (45.5-73.1); Platelet Count Result 200 k/mm3 (150-375); Red Cell Distribution Width 11.6 % (11.5-14.5); White Blood Count 12.4 K/mm3 (4.5-10.0)
[2020-05-13] MEDS: INSULIN ASPART (*BKC) 100 UNITS/ML SUB-Q ×4 (07:58→17:06)
[2020-05-13 07:59] LABS: Glucose Point of Care 263 (65-105)
[2020-05-13] MEDS: metFORMIN HCL 500 MG TABLET PO (08:02)
[2020-05-13] MEDS: QUEtiapine FUMARATE 100 MG TABLET PO (08:03)
[2020-05-13] MEDS: DULoxetine HCL 60 MG CAPSULE.DR PO (08:03)
[2020-05-13] MEDS: carvediloL 3.125 MG TABLET PO ×2 (08:03→22:40)
[2020-05-13] MEDS: PANTOPRAZOLE SOD SESQUIHYDRATE 20 MG TAB PO (08:03)
[2020-05-13] MEDS: PREGABALIN (*CRX) 75 MG CAPSULE 150 MG PO (08:07)
[2020-05-13 08:16] LABS: Vancomycin Trough 9.6 ug/mL (10.0-20.0)
[2020-05-13 12:01] LABS: Glucose Point of Care 330 (65-105)
--- NOTE | 2020-05-13 12:07 | P.PNIM_ITS ---
Progress Note: A&P Assessment and Plan (1) Sepsis: Code(s): A41.9 - Sepsis, unspecified organism Status: Acute Assessment and Plan: The patient meets sepsis criteria on admission with tachycardia, fever, and le ukocytosis in the setting of infection secondary to absess of back. Lactic acid 1.7. T-max of 100.7?. He has been afebrile today. Leukocytosis improving. * Continue IV antibiotics * Monitor vital signs closely and trend labs (2) Bacteremia: Code(s): R78.81 - Bacteremia Status: Acute Assessment and Plan: Blood cultures demonstrate S. aureus in 2/2 bottles. Suspect MRSA given history. Source of infection is likely abscess. * Continue IV Vancomycin and Primaxin. * Await susceptibility results. * Consult to infectious disease. Recommendations appreciated. (3) Abscess of back: Code(s): L02.212 - Cutaneous abscess of back [any part, except buttock] Status: Acute Assessment and Plan: Approximately 8 cm. S/p I&D in emergency department on 05/11/2020. Continues to endorse pain but reports improvement. He does have a history of skin abscesses with confirmed MRSA infection in the past. Wound cultures growing Staph aureus. * Appreciate general surgery consultation. Subsequent I&D being considered based on patient's progression. * Continue imipenem and vancomycin per antibiotic stewardship recommendations for suspected MRSA coverage given history. * Analgesics available as needed for pain * MRI cervical, thoracic, and lumbar spine ordered to ensure infection has not penetrated GASKET WINDER, especially in light of clinical findings including suddent onset truncal instability and weakness. (4) Episode of generalized weakness: Code(s): R53.1 - Weakness Status: Acute Assessment and Plan: On 05/12/20, patient had sudden, acute onset of generalized weakness and lethargy with truncal instability as well as dysphasia. He had no focal neuro deficits. Etiology not clear at this time. Head CT negative for acute findings. EKG was unremarkable. TSH, B12, Folate, ammonia wnl. Additional considerations include GASKET WINDER infection secondary to back abscess/bacteremia. Symptoms have improved significantly today. * Appreciate neurology consultation * MRI ordered as noted above. * He will likely benefit from PT/OT but will await further information at this time. (5) Insulin dependent type 2 diabetes mellitus: Code(s): E11.9 - Type 2 diabetes mellitus without complications; Z79.4 - residential (current) use of insulin Status: Acute Assessment and Plan: Poorly controlled. A1c 11.5 (05/11/2020). Blood sugars evaluated and have been as high as 480. No anion gap. Urine ketones 1+ on 05/11/20. beta hydroxybutyrate only slightly elevated. Do not suspect DKA. Blood sugars better today but still very elevated. * Continue Accu-Cheks a.c. HS, high dose SSI, and hypoglycemic protocol * Continue Lantus qHS, increase to 20 units * Add 5 units novolog scheduled with meals. * Monitor blood sugar trends. * Strict glycemic control is imperative for wound healing. (6) Hypertension: Code(s): I10 - Essential (primary) hypertension Status: Inactive Assessment and Plan: Blood pressure evaluated and has been well controlled today. Last BP 145/67. * Continue Coreg (7) Weight loss: Code(s): R63.4 - Abnormal weight loss Status: Acute Assessment and Plan: Patient reports unintentional 70 lb weight loss in 1 year. Etiology unclear at this time.
--- NOTE | 2020-05-13 12:07 | PM.IMPN ---
Progress Note: A&P Assessment and Plan (1) Sepsis: Code(s): A41.9 - Sepsis, unspecified organism Status: Acute Assessment and Plan: The patient meets sepsis criteria on admission with tachycardia, fever, and leukocytosis in the setting of infection secondary to absess of back. Lactic acid 1.7. T-max of 100.7?. He has been afebrile today. Leukocytosis improving. Continue IV antibiotics Monitor vital signs closely and trend labs (2) Bacteremia: Code(s): R78.81 - Bacteremia Status: Acute Assessment and Plan: Blood cultures demonstrate S. aureus in 2/2 bottles. Suspect MRSA given history. Source of infection is likely abscess. Continue IV Vancomycin and Primaxin. Await susceptibility results. Consult to infectious disease. Recommendations appreciated. (3) Abscess of back: Code(s): L02.212 - Cutaneous abscess of back [any part, except buttock] Status: Acute Assessment and Plan: Approximately 8 cm. S/p I&D in emergency department on 05/11/2020. Continues to endorse pain but reports improvement. He does have a history of skin abscesses with confirmed MRSA infection in the past. Wound cultures growing Staph aureus. Appreciate general surgery consultation. Subsequent I&D being considered based on patient's progression. Continue imipenem and vancomycin per antibiotic stewardship recommendations for suspected MRSA coverage given history. 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 (4) Episode of generalized weakness: Code(s): R53.1 - Weakness Status: Acute Assessment and Plan: On 05/12/20, patient had sudden, acute onset of generalized weakness and lethargy with truncal instability as well as dysphasia. He had no focal neuro deficits. Etiology not clear at this time. Head CT negative for acute findings. EKG was unremarkable. TSH, B12, Folate, ammonia wnl. Additional considerations include SERVICE DESK TECHNICIAN infection secondary to back abscess/bacteremia. Symptoms have improved significantly today. Appreciate neurology consultation MRI ordered as noted above. He will likely benefit from PT/OT but will await further information at this time. (5) Insulin dependent type 2 diabetes mellitus: Code(s): E11.9 - Type 2 diabetes mellitus without complications; Z79.4 - snf (current) use of insulin Status: Acute Assessment and Plan: Poorly controlled. A1c 11.5 (05/11/2020). Blood sugars evaluated and have been as high as 480. No anion gap. Urine ketones 1+ on 05/11/20. beta hydroxybutyrate only slightly elevated. Do not suspect DKA. Blood sugars better today but still very elevated. Continue Accu-Cheks a.c. HS, high dose SSI, and hypoglycemic protocol Continue Lantus qHS, increase to 20 units Add 5 units novolog scheduled with meals. Monitor blood sugar trends. Strict glycemic control is imperative for wound healing. (6) Hypertension: Code(s): I10 - Essential (primary) hypertension Status: Inactive Assessment and Plan: Blood pressure evaluated and has been well controlled today. Last BP 145/67. Continue Coreg (7) Weight loss: Code(s): R63.4 - Abnormal weight loss Status: Acute Assessment and Plan: Patient reports unintentional 70 lb weight loss in 1 year. Etiology unclear at this time. He reports no changes in his diet. TSH wnl. HIV negative. Fecal occult blood testing has been ordered but uncollected. CXR with no concerning findings. Will consider CT abdomen/pelvis based on results of labs (8) Normocytic anemia: Code(s): D64.9 - Anemia, unspecified Status: Acute Assessment and Plan: Hemoglobin and hematocrit stable upon presentation with slight decline foll
[2020-05-13 12:43] LABS: Alanine Aminotransferase 12 U/L (4-50); Albumin Level 2.9 g/dL (3.5-5.1); Alkaline Phosphatase 92 U/L (38-126); Anion Gap 8 mmol/L (8-16); Aspartate Amino Transferase 16 U/L (17-59); Bilirubin,Total 0.3 mg/dL (0.2-1.3); Blood Urea Nitrogen 18 mg/dL (9-20); Calcium 8.5 mg/dL (8.4-10.2); Carbon Dioxide 24 mmol/L (22-30); Chloride 100 mmol/L (98-107); Estimated CRCL calculation 125 ml/min; Estimated Glomerular Filt Rate > 60; Glucose 285 mg/dL (75-110); Potassium 4.1 mmol/L (3.4-5.0); Sodium 132 mmol/L (137-145)
[2020-05-13 12:57] LABS: CRP 22.4 mg/dL (<1.0)
--- NOTE | 2020-05-13 13:09 | PM.PNGS ---
Progress Note: A&P Assessment and Plan (1) Abscess of back: Code(s): L02.212 - Cutaneous abscess of back [any part, except buttock] Status: Acute Assessment and Plan: Continue daily dressing changes and IV antibiotics. Abscess may need larger I and D if he is not showing signs of improvement. Will reassess tomorrow and if becoming larger will consider bedside I&D. Subjective Subjective Date/Time Seen: 05/13/20 13:09 Interval history: Still having some pain on his back. Not much drainage. Exam Back/Spine/Pelvis: Back/spine/pelvis image: 1. 4 cm x 3 cm area of induration with mild erythema, minimal purulence drainage from small I&D incision Objective Data Vital Signs Vital Signs: Vital Signs - 24 hr 05/12/20 14:00 05/12/20 20:05 05/12/20 20:09 Temperature 36.7 C 36.7 C Pulse Rate 95 94 94 Respiratory Rate 16 14 Blood Pressure 113/59 L 135/58 L Pulse Oximetry 96 99 05/13/20 05:56 05/13/20 08:00 05/13/20 08:03 Temperature 36.0 C L Pulse Rate 97 97 97 Respiratory Rate 14 14 Blood Pressure 145/67 H Pulse Oximetry 97 97 05/13/20 10:14 Temperature Pulse Rate Respiratory Rate Blood Pressure Pulse Oximetry 93 Intake/Output Intake/Output: Intake & Output 05/10/20 05/11/20 05/12/20 05/13/20 23:59 23:59 23:59 23:59 Intake Total 350 2100 700 Output Total 1450 Balance 350 2100 -750 Meds/Results Medications: Active Medications Generic Name Dose Route Start Last Admin Trade Name Freq PRN Reason Stop Dose Admin Acetaminophen 650 mg 05/11/20 23:46 Acetaminophen 325 Mg Tablet PO Q4H PRN Fever Hydrocodone Bitart/Acetaminophen 1 tab 05/11/20 18:45 05/13/20 06:07 Hydrocodone/Acetaminophen (*Crx) 5-325 Mg Tablet PO 1 tab Q4H PRN Administration Pain Rated 4-6 Carvedilol 3.125 mg 05/11/20 23:50 05/13/20 08:03 Carvedilol 3.125 Mg Tablet PO 3.125 mg Q12HR BRANT Administration Dextrose 12.5 gm 02/04/21 22:08 Dextrose 50% 25 Gm/50 Ml Syringe IV PUSH PRN PRN Hypoglycemia Protocol Duloxetine HCl 60 mg 05/12/20 09:00 05/13/20 08:03 Duloxetine Hcl 60 Mg Capsule.Dr PO 60 mg DAILY BRANT Administration Glucagon 1 mg 05/11/20 22:08 Glucagon For Inj 1 Mg Vial IM PRN PRN Hypoglycemia Protocol Glucose 15 gm 05/11/20 22:08 Glucose Oral Gel 15 Gm Of Glucse In 37.5 Gm Tube PO PRN PRN Hypoglycemia Protocol Imipenem/Cilastatin Sodium 500 mg in 100 mls @ 300 mls/hr 05/12/20 00:00 05/13/20 12:40 Primaxin 500 Mg/D5w 100 Ml IVPB 300 mls/hr Q6H BRANT Administration Dextrose 1,000 mls @ 100 mls/hr 05/11/20 22:08 Dextrose 5% 1,000 Ml IVPB PRN PRN Hypoglycemia Protocol Vancomycin HCl 1,750 mg in 500 mls @ 250 mls/hr 05/13/20 09:00 05/13/20 09:41 Vancomycin 1,750 Mg/D5w 500 Ml IVPB 250 mls/hr Q12H BRANT Administration Insulin Aspart 4 - 8 units 05/12/20 08:00 05/13/20 11:41 Insulin Aspart (*Bkc) 100 Units/Ml SUB-Q 6 units TIDWM BRANT Administration Protocol Insulin Glargine 11 units 05/12/20 21:00 05/12/20 20:06 Insulin Glargine (*Bkc) 100 Units/Ml 0.15 units/kg (11 units) 11 units SUB-Q Administration HS BRANT Melatonin 9 mg 05/12/20 00:05 05/12/20 20:05 Melatonin 3 Mg Tablet PO 9 mg HS BRANT Administration Metformin HCl 500 mg 05/12/20 08:00 05/13/20 08:02 Metformin Hcl 500 Mg Tablet PO 500 mg DAILY@0800 BRANT Administration Pantoprazole Sodium 20 mg 05/12/20 09:00 05/13/20 08:03 Pantoprazole Sod Sesquihydrate 20 Mg Tab PO 20 mg QAM BRANT Administration Pregabalin 150 mg 05/12/20 09:00 05/13/20 08:07 Pregabalin (*Crx) 75 Mg Capsule PO 150 mg DAILY BRANT Administration Quetiapine Fumarate 100 mg 05/12/20 09:00 05/13/20 08:03 Quetiapine Fumarate 100 Mg Tablet PO 100 mg DAILY BRANT Administration Radiology Results: ITS Impressions Chest X-Ray
[2020-05-13] MEDS: MORPHINE SULFATE (*CRX) 2 MG/ML INJ IV PUSH (13:55)
[2020-05-13 16:40] LABS: Glucose Point of Care 269 (65-105)
[2020-05-13] MEDS: MELATONIN 3 MG TABLET 9 MG PO (22:39)
[2020-05-13] MEDS: INSULIN GLARGINE (*BKC) 100 UNITS/ML 20 UNITS SUB-Q (22:39)
[2020-05-13 22:50] LABS: Glucose Point of Care 284 (65-105)
[2020-05-14 05:57] VITALS: BP 143/72; PULSE 84; RESP 12; TEMP 36.3; O2SAT 97
[2020-05-14 06:38] LABS: Basophils Absolute Auto 0.1 K/mm3 (0.0-0.1); Basophils Percent Auto 0.5 % (0.2-1.2); Eosinophils Absolute Auto 0.4 K/mm3 (0-0.3); Eosinophils Percent Auto 3.7 % (0-4.4); Hematocrit 31.7 % (42.0-52.0); Hemoglobin 11.1 g/dL (14.0-18.0); Immature Granulocyte Absolute 0.11 K/mm3 (0.00-0.031); Lymphocytes Absolute Auto 1.25 K/mm3 (0.9-3.2); Lymphocytes Percent Auto 11.2 % (18.3-44.2); Mean Corpuscular Hemoglobin 31.1 pg (26-34); Mean Corpuscular Volume 88.8 fl (80-100); Mean Platelet Volume 10.3 fl (7.4-10.4); Monocytes Absolute Auto 1.2 K/mm3 (0.1-0.6); Monocytes Percent Auto 10.3 % (2.6-8.5); Neutrophils Absolute Auto 8.2 K/mm3 (1.3-6.7); Neutrophils Percent Auto 73.3 % (45.5-73.1); Platelet Count Result 220 k/mm3 (150-375); Red Blood Count 3.57 M/mm3 (4.6-6.20); Red Cell Distribution Width 11.6 % (11.5-14.5); White Blood Count 11.2 K/mm3 (4.5-10.0)
[2020-05-14] MEDS: HYDROcodone/acetaminophen (*CRX) 5-325 MG TABLET 1 TAB PO ×2 (07:17→21:44)
[2020-05-14 07:55] LABS: Anion Gap 2 mmol/L (8-16); Blood Urea Nitrogen 12 mg/dL (9-20); Calcium 8.3 mg/dL (8.4-10.2); Carbon Dioxide 30 mmol/L (22-30); Chloride 101 mmol/L (98-107); Estimated CRCL calculation 147 ml/min; Estimated Glomerular Filt Rate > 60; Glucose 260 mg/dL (75-110); Potassium 4.1 mmol/L (3.4-5.0); Sodium 133 mmol/L (137-145)
[2020-05-14 08:00] VITALS: PULSE 97; RESP 12; O2SAT 97
[2020-05-14 08:03] LABS: IFOB Positive Control Positive; Immunochemical Fecal Occult Bl Negative (N)
[2020-05-14 08:05] LABS: CRP 13.9 mg/dL (<1.0)
[2020-05-14] MEDS: INSULIN ASPART (*BKC) 100 UNITS/ML SUB-Q ×5 (08:13→17:27)
--- NOTE | 2020-05-14 08:25 | PC.NURSE ---
Patient refuses bed alarm. Reviewed fall precautions with patient and patient still wants alarm to remain off. Bed alarm off.
[2020-05-14 08:38] LABS: Glucose Point of Care 250 (65-105)
[2020-05-14] MEDS: DULoxetine HCL 60 MG CAPSULE.DR PO (09:06)
[2020-05-14] MEDS: metFORMIN HCL 500 MG TABLET PO (09:06)
[2020-05-14 09:07] VITALS: PULSE 97
[2020-05-14] MEDS: carvediloL 3.125 MG TABLET PO ×2 (09:07→20:11)
[2020-05-14] MEDS: QUEtiapine FUMARATE 100 MG TABLET PO (09:07)
[2020-05-14] MEDS: PANTOPRAZOLE SOD SESQUIHYDRATE 20 MG TAB PO (09:07)
[2020-05-14] MEDS: PREGABALIN (*CRX) 75 MG CAPSULE 150 MG PO (09:11)
[2020-05-14 11:40] LABS: Glucose Point of Care 198 (65-105)
--- NOTE | 2020-05-14 12:10 | PM.PNGS ---
Progress Note: A&P Assessment and Plan (1) Abscess of back: Code(s): L02.212 - Cutaneous abscess of back [any part, except buttock] Status: Acute Assessment and Plan: Abscess not improving much yet. Needs to be opened up further. Will proceed with I&D of back abscess at bedside today. Patient understands and agrees. Subjective Subjective Date/Time Seen: 05/14/20 12:10 Interval history: Still having back pain and drainage from abscess. Exam Skin: Other: 4cm x 4cm mid back abscess with persistent purulent drainage from small opening. There is still some fluctuance to inferior portion of abscess. Mild surrounding erythema. Objective Data Vital Signs Vital Signs: Vital Signs - 24 hr 05/13/20 14:00 05/13/20 19:44 05/13/20 22:40 Temperature 36.4 C 36.4 C L Pulse Rate 86 94 96 Respiratory Rate 16 14 Blood Pressure 139/73 147/64 H Pulse Oximetry 97 100 05/14/20 05:57 05/14/20 09:07 Temperature 36.3 C L Pulse Rate 84 97 Respiratory Rate 12 Blood Pressure 143/72 H Pulse Oximetry 97 Intake/Output Intake/Output: Intake & Output 05/11/20 05/12/20 05/13/20 05/14/20 23:59 23:59 23:59 23:59 Intake Total 350 2100 1500 600 Output Total 2200 400 Balance 350 2100 -700 200 Meds/Results Medications: Active Medications Generic Name Dose Route Start Last Admin Trade Name Freq PRN Reason Stop Dose Admin Acetaminophen 650 mg 05/11/20 23:46 Acetaminophen 325 Mg Tablet PO Q4H PRN Fever Hydrocodone Bitart/Acetaminophen 1 tab 05/11/20 18:45 05/14/20 07:17 Hydrocodone/Acetaminophen (*Crx) 5-325 Mg Tablet PO 1 tab Q4H PRN Administration Pain Rated 4-6 Carvedilol 3.125 mg 05/11/20 23:50 05/14/20 09:07 Carvedilol 3.125 Mg Tablet PO 3.125 mg Q12HR BRANT Administration Dextrose 12.5 gm 05/11/20 22:08 Dextrose 50% 25 Gm/50 Ml Syringe IV PUSH PRN PRN Hypoglycemia Protocol Duloxetine HCl 60 mg 05/12/20 09:00 05/14/20 09:06 Duloxetine Hcl 60 Mg Capsule. PO 60 mg DAILY BRANT Administration Glucagon 1 mg 05/11/20 22:08 Glucagon For Inj 1 Mg Vial IM PRN PRN Hypoglycemia Protocol Glucose 15 gm 05/11/20 22:08 Glucose Oral Gel 15 Gm Of Glucse In 37.5 Gm Tube PO PRN PRN Hypoglycemia Protocol Dextrose 1,000 mls @ 100 mls/hr 05/11/20 22:08 Dextrose 5% 1,000 Ml IVPB PRN PRN Hypoglycemia Protocol Vancomycin HCl 1,750 mg in 500 mls @ 250 mls/hr 05/13/20 09:00 05/14/20 08:19 Vancomycin 1,750 Mg/D5w 500 Ml IVPB 250 mls/hr Q12H BRANT Administration Insulin Aspart 4 - 8 units 05/12/20 08:00 05/14/20 08:13 Insulin Aspart (*Bkc) 100 Units/Ml SUB-Q 4 units TIDWM BRANT Administration Protocol Insulin Aspart 5 units 05/13/20 17:00 05/14/20 08:14 Insulin Aspart (*Bkc) 100 Units/Ml 0.067 units/kg (5 units) 5 units SUB-Q Administration TIDWM [facility] Insulin Glargine 20 units 05/13/20 21:00 05/13/20 22:39 Insulin Glargine (*Bkc) 100 Units/Ml SUB-Q 20 units HS BRANT Administration Melatonin 9 mg 05/12/20 00:05 05/13/20 22:39 Melatonin 3 Mg Tablet PO 9 mg HS BRANT Administration Metformin HCl 500 mg 05/12/20 08:00 05/14/20 09:06 Metformin Hcl 500 Mg Tablet PO 500 mg DAILY@0800 BRANT Administration Pantoprazole Sodium 20 mg 05/12/20 09:00 05/14/20 09:07 Pantoprazole Sod Sesquihydrate 20 Mg Tab PO 20 mg QAM BRANT Administration Pregabalin 150 mg 05/12/20 09:00 05/14/20 09:11 Pregabalin (*Crx) 75 Mg Capsule PO 150 mg DAILY BRANT Administration Quetiapine Fumarate 100 mg 05/12/20 09:00 05/14/20 09:07 Quetiapine Fumarate 100 Mg Tablet PO 100 mg DAILY BRANT Administration Radiology Results: ITS Impressions Chest X-Ray 05/11/20 17:47 IMPRESSION: 1: NO ACUTE CARDIOPULMONARY DISEASE. Venous Doppler Study 05/12/20 09:29 IMPRESSION: 1. No lower extremity deep venous throm
--- NOTE | 2020-05-14 12:53 | P.OP_ITS ---
Procedure Note - Detailed Date of procedure: 05/14/20 Pre-op diagnosis: back abscess Post-op diagnosis: same Procedure performed: incision and drainage of complicated back abscess Description of procedure: * patient was positioned in left lateral decubitus position in hospital bed. Time-out was done to confirm patient and procedure. His back was prepped with Betadine prep. 1% lidocaine with epinephrine was infiltrated locally around the back abscess. An 11 blade scalpel was used to extend the small wound opening in the upper portion of the abscess down inferiorly to a total length of about 4 cm. The incision was carried down to the abscess cavity. There were multiple loculations that were carefully broken up using scissors and a Q-tip. About 3-5 cc of purulence fluid was drained from underneath the skin. The wound was then packed with half-inch iodoform gauze. 4 x 4 gauze and Medipore tape were applied. Anesthesia: local ( 1% lidocaine with epinephrine) Surgeon: Emil Ramirez DO Estimated blood loss (mL): 5 Packing: Yes ( 1/2 inch iodoform gauze) Complications: No immediate complications Condition: stable Disposition: no change
--- NOTE | 2020-05-14 13:02 | PM.IMPN ---
Progress Note: A&P Assessment and Plan (1) Sepsis: Code(s): A41.9 - Sepsis, unspecified organism Status: Acute Assessment and Plan: The patient met sepsis criteria on admission with tachycardia, fever, and leukocytosis in the setting of infection secondary to absess of back. Lactic acid 1.7. T-max of 100.7?. He has been afebrile >48 hours. Leukocytosis improving. Continue IV antibiotics Monitor vital signs closely and trend labs (2) Bacteremia: Code(s): R78.81 - Bacteremia Status: Acute Assessment and Plan: Blood cultures demonstrate S. aureus in 2/2 bottles. Suspect MRSA given history. Source of infection is likely abscess. Continue IV Vancomycin. Primaxin discontinued per ID recommendations. . Await susceptibility results. Infectious disease has been consulted and recommendations are appreciated. (3) Abscess of back: Code(s): L02.212 - Cutaneous abscess of back [any part, except buttock] Status: Acute Assessment and Plan: Approximately 8 cm. S/p I&D in emergency department on 05/11/2020. He does have a history of skin abscesses with confirmed MRSA infection in the past. Wound cultures growing Staph aureus. Now s/p bedside I&D by Dr. Ramirez today. Appreciate general surgery consultation. Continue vancomycin for suspected MRSA coverage given history. 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 Therefore thoracic CT obtained which did show extensive soft tissue phlegmonous changes with ill-defined margins and no definite involvement of the spinal canal. Will still attempt to proceed with MRI as this would be a more sensitive diagnostic tool. I had hoped to have this completed after the patient's I&D today while he was still numb, however his pain was severe and he again did not feel he could tolerate this. Plan for MRI when pain is better controlled. (4) Episode of generalized weakness: Code(s): R53.1 - Weakness Status: Acute Assessment and Plan: On 05/12/20, patient had sudden, acute onset of generalized weakness and lethargy with truncal instability as well as dysphasia. He had no focal neuro deficits. Etiology not clear at this time. Head CT negative for acute findings. EKG was unremarkable. TSH, B12, Folate, ammonia wnl. 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 No definite involvement of spinal canal identified on thoracic CT. Symptoms continue to improve and he is no longer having weakness or truncal instability. Appreciate neurology consultation MRI ordered as noted above. Will order PT/OT. Appreciate evaluation (5) Insulin dependent type 2 diabetes mellitus: Code(s): E11.9 - Type 2 diabetes mellitus without complications; Z79.4 - senior care (current) use of insulin Status: Acute Assessment and Plan: Poorly controlled. A1c 11.5 (05/11/2020). Blood sugars evaluated and have been as high as 480. No anion gap. Urine ketones 1+ on 05/11/20. beta hydroxybutyrate only slightly elevated. Do not suspect DKA. Blood sugars better today but still above target. Continue Accu-Cheks ACHS, high dose SSI, and hypoglycemic protocol Continue 20 units Lantus qHS Add 5 units novolog scheduled with meals. Monitor blood sugar trends. Strict glycemic control is imperative for wound healing. (6) Hypertension: Code(s): I10 - Essential (primary) hypertension Status: Inactive Assessment and Plan: Blood pressure evaluated and has been well controlled today, especially given pain. Last BP 143/72. Continue Coreg (7) Weight loss: Code(s): R63.4 - Abnormal weight loss St
[2020-05-14 14:21] VITALS: BP 143/69; PULSE 90; RESP 14; TEMP 36.2; O2SAT 98
[2020-05-14] MEDS: MORPHINE SULFATE (*CRX) 2 MG/ML INJ IV PUSH (14:41)
--- NOTE | 2020-05-14 14:46 | PC.NURSE ---
Patient has several 100 dollar bills laying on bedside table. Patient voiced that he needs an envelope to put $1500s in to give to a person to take downstairs to hand to the person that he is having to pay his rent. I called the charge nurse about this and she voiced that the patient can be taken downstairs by wheelchair to hand the money to the person that he wants to hand the money to. Patient acknowledged understanding.
--- NOTE | 2020-05-14 14:54 | PC.NURSE ---
I offered to have his money locked up (will have charge nurse lock it up) until he could give the money to the person paying his rent and he said no.
[2020-05-14 17:30] LABS: Glucose Point of Care 204 (65-105)
[2020-05-14 20:03] VITALS: BP 155/65; PULSE 91; RESP 14; TEMP 36.3; O2SAT 100
[2020-05-14 20:11] VITALS: PULSE 91
[2020-05-14] MEDS: MELATONIN 3 MG TABLET 9 MG PO (20:12)
[2020-05-14 20:41] LABS: Vancomycin Trough 11.8 ug/mL (10.0-20.0)
[2020-05-14] MEDS: INSULIN GLARGINE (*BKC) 100 UNITS/ML 20 UNITS SUB-Q (21:31)
[2020-05-14 21:50] LABS: Glucose Point of Care 308 (65-105)
[2020-05-15 05:52] LABS: Hematocrit 32.8 % (42.0-52.0); Hemoglobin 11.3 g/dL (14.0-18.0); Mean Corpuscular HGB Conc 34.5 g/dl (32-36); Mean Corpuscular Hemoglobin 30.5 pg (26-34); Mean Corpuscular Volume 88.6 fl (80-100); Mean Platelet Volume 9.9 fl (7.4-10.4); Platelet Count Result 222 k/mm3 (150-375); Red Cell Distribution Width 11.5 % (11.5-14.5); White Blood Count 7.5 K/mm3 (4.5-10.0)
[2020-05-15 06:00] VITALS: BP 172/79; PULSE 86; RESP 12; TEMP 36.4; O2SAT 98
[2020-05-15 06:24] LABS: Anion Gap 3 mmol/L (8-16); Blood Urea Nitrogen 8 mg/dL (9-20); Calcium 8.2 mg/dL (8.4-10.2); Carbon Dioxide 30 mmol/L (22-30); Chloride 103 mmol/L (98-107); Estimated CRCL calculation 131 ml/min; Estimated Glomerular Filt Rate > 60; Glucose 243 mg/dL (75-110); Potassium 3.9 mmol/L (3.4-5.0); Sodium 136 mmol/L (137-145)
[2020-05-15 07:32] LABS: Glucose Point of Care 228 (65-105)
[2020-05-15 08:45] LABS: Glucose Point of Care 218 (65-105)
[2020-05-15] MEDS: MORPHINE SULFATE (*CRX) 2 MG/ML INJ IV PUSH ×2 (08:51→18:33)
--- NOTE | 2020-05-15 10:12 | PM.PNGS ---
Progress Note: A&P Assessment and Plan (1) Abscess of back: Code(s): L02.212 - Cutaneous abscess of back [any part, except buttock] Status: Acute Assessment and Plan: POD#1 I&D of back abscess. Now adequately drained. Continue local wound care with daily packing. (2) Cholelithiasis with chronic cholecystitis: Code(s): K80.10 - Calculus of gallbladder with chronic cholecystitis without obstruction Status: Acute Assessment and Plan: RUQ ultrasound ordered for abdominal pain and showed cholelithiasis with mild gallbladder wall thickening and trace pericholecystic fluid. This has been a chronic issue for the patient and he is not currently having any abdominal pain. He has been following a low fat diet at home and was previously evaluated by a Surgeon at the [facility] for gallstones. He does not appear to have acute cholecystitis. Althouhg, his intermittent abdominal pain does correlate with gallbladder disease and he may benefit from an elective cholecystectomy eventually. I also discussed with the patient that his intermittent abdominal pain could be related to other causes as well. For now, we would recommend that he continue treatment for his acute infection and bacteremia, and then he could be evaluated for an elective laparoscopic cholecystectomy as an outpatient. He can follow-up at the [facility] or with our service after this infection has resolved. I discussed signs of acute cholecystitis and to present to the ER if they occur. The patient is agreeable to this plan. Okay for him to advance to a low fat diet, which should be continued on discharge. (3) Bacteremia: Code(s): R78.81 - Bacteremia Status: Acute Assessment and Plan: + blood cx 2/2 staph aureus. ID consulted. Continue abx per ID. 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 Guerrero. Subjective Subjective Date/Time Seen: 05/15/20 10:12 Post Op day: 1 Patient reports: no new complaints and pain is less Interval history: Patient reports back pain at abscess has improved since yesterday, but still sore. No other new complaints. He does report having some intermittent RUQ abdominal pain that radiates to his mid back for the past year. He feels it is aggravated by eating fatty foods. No nausea or vomiting. Denies abdominal pain today. He states he has had this pain once during his hospitalization here, but no different than what he has been dealing with for the past year. Review of Systems Gastrointestinal: Gastrointestinal: Reports as per HPI, Reports no additional gastrointestinal complaints, Reports abdominal pain, Reports bloating, Denies diarrhea, Denies nausea and Denies vomiting Genitourinary: Genitourinary: Reports other (groin pain) Exam Skin: Other: Upper back abscess with packing in place by the nurse Objective Data Vital Signs Vital Signs: Vital Signs - 24 hr 05/14/20 14:21 05/14/20 20:03 05/14/20 20:11 Temperature 97.1 F L 97.3 F L Pulse Rate 90 91 91 Respiratory Rate 14 14 Blood Pressure 143/69 H 155/65 H Pulse Oximetry 98 100 05/15/20 06:00 Temperature 97.6 F Pulse Rate 86 Respiratory Rate 12 Blood Pressure 172/79 H Pulse Oximetry 98 Intake/Output Intake/Output: Intake & Output 05/12/20 05/13/20 05/14/20 05/15/20 23:59 23:59 23:59 23:59 Intake Total 2100 1500 1340 100 Output Total 2200 700 900 Balance 2100 -700 640 -800 Meds/Results Medications: Active Medications Generic Name Dose Route Start Last Admin Trade Name Freq PRN Reason Stop Dose Admin Acetaminophen 650 mg 05/11/20 23:46 Acetaminophen 325 Mg Tablet PO Q4H PRN Fever Hydrocodone Bitart/Acetaminophen 1 tab 05/11/20 18:45 05/14/20 21:44 Hydrocodone/Acetaminophen (*Crx) 5-325 Mg Tablet PO 1 tab Q4
[2020-05-15 10:54] VITALS: BMI 22.2
[2020-05-15] MEDS: HYDROcodone/acetaminophen (*CRX) 5-325 MG TABLET 1 TAB PO ×2 (11:31→20:22)
--- NOTE | 2020-05-15 12:11 | PM.IMPN ---
Progress Note: A&P Assessment and Plan (1) Sepsis: Code(s): A41.9 - Sepsis, unspecified organism Status: Acute Assessment and Plan: The patient met sepsis criteria on admission with tachycardia, fever, and leukocytosis in the setting of infection secondary to absess of back. Lactic acid 1.7. T-max of 100.7?. He has been afebrile >48 hours. Leukocytosis and tachycardia resolved. Continue IV antibiotics Monitor vital signs closely and trend labs (2) Bacteremia: Code(s): R78.81 - Bacteremia Status: Acute Assessment and Plan: Blood cultures demonstrate methicillin sensitive S. aureus in 2/2 bottles. Source of infection is likely abscess. Begin IV Ancef per ID recommendations. IV Vancomycin and Primaxin discontinued Infectious disease has been consulted and recommendations regarding antibiotic therapy duration are appreciated. (3) Abscess of back: Code(s): L02.212 - Cutaneous abscess of back [any part, except buttock] Status: Acute Assessment and Plan: Approximately 8 cm. S/p I&D in emergency department on 05/11/2020. He does have a history of skin abscesses with confirmed MRSA infection in the past. Wound cultures growing methicillin sensitive Staph aureus. S/p bedside I&D by Dr. Ramirez on 05/14/20. Pain is improving. Appreciate general surgery consultation. 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 Therefore thoracic CT obtained which did show extensive soft tissue phlegmonous changes with ill-defined margins and no definite involvement of the spinal canal. Will still attempt to proceed with MRI as this would be a more sensitive diagnostic tool. Patient willing to attempt MRI today and will await results. (4) Episode of generalized weakness: Code(s): R53.1 - Weakness Status: Acute Assessment and Plan: On 05/12/20, patient had sudden, acute onset of generalized weakness and lethargy with truncal instability as well as dysphasia. He had no focal neuro deficits. Etiology not clear at this time. Head CT negative for acute findings. EKG was unremarkable. TSH, B12, Folate, ammonia wnl. 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 He is no longer having weakness or truncal instability. Appreciate neurology consultation MRI ordered as noted above. Will order PT/OT. Appreciate evaluation (5) Cholelithiasis: Code(s): K80.20 - Calculus of gallbladder without cholecystitis without obstruction Status: Inactive Assessment and Plan: Endorsing RUQ pain and diminished appetite. He has known history of gallstones but was not approved for [facility] by [facility] due to uncontrolled DM. U/S shows cholelithiasis with mild gallbladder wall thickening, trace pericholecystic fluid and positive sonographic Malone sign. Currently NPO General surgery followin and input is appreciated. (6) Weight loss: Code(s): R63.4 - Abnormal weight loss Status: Acute Assessment and Plan: Patient reports unintentional 70 lb weight loss in 1 year. Etiology not entirely clear, however I suspect this is due to ongoing abdominal pain related likely to cholelithiasis. He reports that his pain keeps him in bed 23 hours a day and he has poor appetite. TSH wnl. HIV negative. Fecal occult blood test negative. Patient reports he had colonoscopy and EGD 1 month ago with no acute findings. General surgery following. He will likely need outpatient elective cholec
[2020-05-15 13:47] VITALS: PULSE 84
[2020-05-15] MEDS: carvediloL 3.125 MG TABLET PO ×2 (13:47→20:26)
[2020-05-15] MEDS: DULoxetine HCL 60 MG CAPSULE.DR PO (13:47)
[2020-05-15] MEDS: metFORMIN HCL 500 MG TABLET PO (13:47)
[2020-05-15] MEDS: PANTOPRAZOLE SOD SESQUIHYDRATE 20 MG TAB PO (13:48)
[2020-05-15] MEDS: QUEtiapine FUMARATE 100 MG TABLET PO (13:48)
[2020-05-15] MEDS: PREGABALIN (*CRX) 75 MG CAPSULE 150 MG PO (13:49)
[2020-05-15] MEDS: INSULIN ASPART (*BKC) 100 UNITS/ML SUB-Q ×4 (13:56→17:19)
[2020-05-15 14:00] VITALS: BP 119/64; PULSE 91; RESP 16; TEMP 36.4; O2SAT 100
[2020-05-15 14:01] LABS: Glucose Point of Care 229 (65-105)
--- NOTE | 2020-05-15 14:24 | WPDINFPN2 ---
Progress Note: A&P Assessment and Plan (1) Bacteremia: Code(s): R78.81 - Bacteremia Status: Acute Assessment and Plan: MAURISIO bacteremia with infection, skin source. 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 Subjective Date/time seen: 05/15/20 14:24 Objective Data Vital Signs Vital Signs: Vital Signs - 24 hr 05/14/20 20:03 05/14/20 20:11 05/15/20 06:00 Temperature 36.3 C L 36.4 C Pulse Rate 91 91 86 Respiratory Rate 14 12 Blood Pressure 155/65 H 172/79 H Pulse Oximetry 100 98 05/15/20 13:47 Temperature Pulse Rate 84 Respiratory Rate Blood Pressure Pulse Oximetry Intake/Output Intake/Output: Intake & Output 05/12/20 05/13/20 05/14/20 05/15/20 23:59 23:59 23:59 23:59 Intake Total 2100 1500 1340 600 Output Total 2200 700 900 Balance 2100 -700 640 -300 Meds/Results Medications: Active Medications Generic Name Dose Route Start Last Admin Trade Name Freq PRN Reason Stop Dose Admin Acetaminophen 650 mg 05/11/20 23:46 Acetaminophen 325 Mg Tablet PO Q4H PRN Fever Hydrocodone Bitart/Acetaminophen 1 tab 05/11/20 18:45 05/15/20 11:31 Hydrocodone/Acetaminophen (*Crx) 5-325 Mg Tablet PO 1 tab Q4H PRN Administration Pain Rated 4-6 Carvedilol 3.125 mg 05/11/20 23:50 05/15/20 13:47 Carvedilol 3.125 Mg Tablet PO 3.125 mg Q12HR BRANT Administration Dextrose 12.5 gm 05/11/20 22:08 Dextrose 50% 25 Gm/50 Ml Syringe IV PUSH PRN PRN Hypoglycemia Protocol Dicyclomine HCl 20 mg 05/14/20 14:32 Dicyclomine Hcl 10 Mg Capsule PO QID PRN Abdominal Cramping Duloxetine HCl 60 mg 05/12/20 09:00 05/15/20 13:47 Duloxetine Hcl 60 Mg Capsule.Dr PO 60 mg DAILY BRANT Administration Glucagon 1 mg 05/11/20 22:08 Glucagon For Inj 1 Mg Vial IM PRN PRN Hypoglycemia Protocol Glucose 15 gm 05/11/20 22:08 Glucose Oral Gel 15 Gm Of Glucse In 37.5 Gm Tube PO PRN PRN Hypoglycemia Protocol Dextrose 1,000 mls @ 100 mls/hr 05/11/20 22:08 Dextrose 5% 1,000 Ml IVPB PRN PRN Hypoglycemia Protocol Cefazolin Sodium 1 gm in 50 mls @ 100 mls/hr 05/15/20 12:00 05/15/20 13:51 Ancef 1 Gm/D5w 50 Ml Pm IVPB 100 mls/hr Q8HR BRANT Administration Insulin Aspart 4 - 8 units 05/12/20 08:00 05/15/20 13:56 Insulin Aspart (*Bkc) 100 Units/Ml SUB-Q 4 units TIDWM BRANT Administration Protocol Insulin Aspart 5 units 05/13/20 17:00 05/15/20 13:57 Insulin Aspart (*Bkc) 100 Units/Ml 0.067 units/kg (5 units) 5 units SUB-Q Administration TIDWM [facility] Insulin Glargine 24 units 05/15/20 21:00 Insulin Glargine (*Bkc) 100 Units/Ml SUB-Q HS BRANT Melatonin 9 mg 05/12/20 00:05 05/14/20 20:12 Melatonin 3 Mg Tablet PO 9 mg HS BRANT Administration Metformin HCl 500 mg 05/12/20 08:00 05/15/20 13:47 Metformin Hcl 500 Mg Tablet PO 500 mg DAILY@0800 BRANT Administration Morphine Sulfate 2 mg 05/14/20 13:02 05/15/20 08:51 Morphine Sulfate (*Crx) 2 Mg/Ml Inj IV PUSH 2 mg Q4H PRN Administration Pain Rated 7-10 Pantoprazole Sodium 20 mg 05/12/20 09:00 05/15/20 13:48 Pantoprazole Sod Sesquihydrate 20 Mg Tab PO 20 mg QAM BRANT Administration Pregabalin 150 mg 05/12/20 09:00 05/15/20 13:49 Pregabalin (*Crx) 75 Mg Capsule PO 150 mg DAILY BRANT Administration Quetiapine Fumarate 100 mg 05/12/20 09:00 05/15/20 13:48 Quetiapine Fumarate 100 Mg Tablet PO 100 mg DAILY BRANT Administration Radiology Results: ITS Impressions Chest X-Ray 05/11/20 17:47 IMPRESSION: 1: NO ACUTE CARDIOPULMONARY DISEASE. Venous Doppler Study 05/12/20 09:29 IMPRESSION: 1. No lower extremity deep venous thrombosis bilaterally. Head CT 05/12/20 11:42 IMPRESSION: 1. No acute intracranial findings. Carotid Doppler Study 05/12/20 1
--- NOTE | 2020-05-15 14:35 | CONS_ITS ---
REASON FOR CONSULTATION Bacteremia. HISTORY OF PRESENT ILLNESS A 54-year-old male with psoriasis. For the last month and half, he has been on a biologic in the form of apremilast. ?He had not been on previous biologics, was on topical therapy previously. ?About a year ago, he had a right lateral gluteus infection with MRSA, received IV antibiotics not under my direction. ?He required wound VAC for some 3 months by his description and there was slow healing. ?He was not on long-term antibiotics. ?He was admitted to hospital on May 11 with several days of increasing pain over the lower thoracic spine area with swelling noted of the skin without preceding trauma. ?He has been seen by Neurology and by Dr. Ramirez. ?He was taken to the operating room yesterday, where he underwent incision and drainage of a back abscess. ?Findings included loculations, purulent fluid. ?The wound was left open and packed. ?He was initially given imipenem and vancomycin, now vancomycin day 5. ?He feels somewhat better today. ?He was seen by Neurology for unclear reasons. ?He has known diabetic peripheral neuropathy. ?No fever, chills, sweats. ALLERGIES None known. BODY AFTER ALLERGIES PRESENT MEDICATIONS List reviewed. ?No other immunosuppressants. HABITS Ex-smoker. ?Rare alcohol. ?No illicit drugs. PAST MEDICAL HISTORY Poorly controlled diabetes, skin grafting for the above hip infection, hypertension, gallstones, inguinal hernias, and the psoriasis. REVIEW OF SYSTEMS Skin, constitutional, musculoskeletal, respiratory, GI, otherwise negative. FAMILY HISTORY COPD, heart disease. SOCIAL HISTORY Lives locally. ?Currently unemployed and single. PHYSICAL EXAMINATION GENERAL: ?Thin, not cachectic. ?No respiratory distress. VITAL SIGNS: ?Temperature 38.2 shortly after arrival, otherwise afebrile since, 172/79, 86, 12, 98% on room air. SKIN: Typical psoriasis over torso, arms, and legs. ?In terms of skin area, extensive. NODES: ?No cervical adenopathy. EENT: Conjunctivae are normal. ?Pupils equal, round. NECK: ?No thyromegaly. ?No meningismus. LUNGS: ?Clear to auscultation and percussion. ?Good air entry. BACK: Intraoperative surgical dressing in place. ?I did not remove. ?He has no surrounding erythema. CARDIAC: ?Regular rate and rhythm. ?No murmurs or gallops. ?Pulses 2+. ABDOMEN: Tender right side, nondistended, firm. ?No guarding. EXTREMITIES: No clubbing, cyanosis, edema. ?Defect of skin contour lateral left buttock without any sign of sinus tract erythema or tenderness or fluctuance. LABORATORY DATA Blood cultures 2/2 sets, susceptible Staph aureus and wound culture obtained in the emergency room, same organism. ?White count 7.5, hemoglobin 11.3, platelets 222. ?No differential done recently, earlier showed minimal left shift. ?Sodium is 136, BUN 8, creatinine 0.6. ?His Accu-Cheks in the 200 range. ?His hemoglobin A1c 11.5%, calcium low, but his albumin is 2.9 also. Transaminases low to normal. ?CRP is 8.0, down from 22.4. ?His HIV nonreactive. RADIOLOGY Thoracic and lumbar spine MRI just completed, shows no diskitis nor deep space infection and no residual abscess. ?Cervical spine MRI, spondylosis. Right upper quadrant ultrasound, gallstones. ?Chest x-ray normal. ASSESSMENT 1. Staphylococcus aureus bacteremia, skin source, improving.? 2. Back abscess, perhaps sebaceous cyst that became infected, postop day 1, same organism.? 3. Immunosuppressed.? 4. 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 RECOMMENDATIONS 1. The apremilast will need to be held for the duration of his present illness.? 2. Stop vancomycin, put on Ancef.? 3. Prolonged IV antibiotics anticipated.? 4. Glycemic control.? Thank you very much for asking me to see him
--- NOTE | 2020-05-15 15:18 | PCPTNOTE ---
Attempted PT evaluation. Pt reports he just got back to bed from the chair and is trying to take a nap. Will attempt again tomorrow. Cyndi Rodriguez, FREDYT
[2020-05-15 17:25] LABS: Glucose Point of Care 233 (65-105)
[2020-05-15 20:00] VITALS: BP 157/84; PULSE 96; RESP 16; TEMP 37.2; O2SAT 97
[2020-05-15 20:26] VITALS: PULSE 90
[2020-05-15] MEDS: MELATONIN 3 MG TABLET 9 MG PO (20:32)
[2020-05-15] MEDS: INSULIN GLARGINE (*BKC) 100 UNITS/ML 24 UNITS SUB-Q (20:34)
[2020-05-15 21:48] LABS: Glucose Point of Care 119 (65-105)
[2020-05-16] MEDS: MORPHINE SULFATE (*CRX) 2 MG/ML INJ IV PUSH ×2 (05:59→20:53)
[2020-05-16 06:00] VITALS: BP 150/80; PULSE 83; RESP 18; TEMP 36.6; O2SAT 95
[2020-05-16 06:11] LABS: Hematocrit 36.3 % (42.0-52.0); Hemoglobin 12.3 g/dL (14.0-18.0); Mean Corpuscular HGB Conc 33.9 g/dl (32-36); Mean Corpuscular Hemoglobin 30.4 pg (26-34); Mean Corpuscular Volume 89.6 fl (80-100); Mean Platelet Volume 9.2 fl (7.4-10.4); Platelet Count Result 286 k/mm3 (150-375); Red Blood Count 4.05 M/mm3 (4.6-6.20); Red Cell Distribution Width 11.5 % (11.5-14.5); White Blood Count 8.5 K/mm3 (4.5-10.0)
[2020-05-16 06:26] LABS: Alanine Aminotransferase 13 U/L (4-50); Albumin Level 3.2 g/dL (3.5-5.1); Alkaline Phosphatase 87 U/L (38-126); Anion Gap 3 mmol/L (8-16); Aspartate Amino Transferase 15 U/L (17-59); Bilirubin,Total 0.3 mg/dL (0.2-1.3); Blood Urea Nitrogen 10 mg/dL (9-20); CRP 4.7 mg/dL (<1.0); Calcium 8.7 mg/dL (8.4-10.2); Carbon Dioxide 32 mmol/L (22-30); Chloride 103 mmol/L (98-107); Estimated CRCL calculation 116 ml/min; Estimated Glomerular Filt Rate > 60; Glucose 213 mg/dL (75-110); Sodium 138 mmol/L (137-145)
[2020-05-16 07:44] LABS: Glucose Point of Care 203 (65-105)
[2020-05-16] MEDS: INSULIN ASPART (*BKC) 100 UNITS/ML SUB-Q ×4 (07:45→17:47)
[2020-05-16 08:11] VITALS: PULSE 87
[2020-05-16] MEDS: metFORMIN HCL 500 MG TABLET PO (08:11)
[2020-05-16] MEDS: carvediloL 3.125 MG TABLET PO ×2 (08:11→20:53)
[2020-05-16] MEDS: DULoxetine HCL 60 MG CAPSULE.DR PO (08:12)
[2020-05-16] MEDS: QUEtiapine FUMARATE 100 MG TABLET PO (08:12)
[2020-05-16] MEDS: PANTOPRAZOLE SOD SESQUIHYDRATE 20 MG TAB PO (08:12)
[2020-05-16] MEDS: PREGABALIN (*CRX) 75 MG CAPSULE 150 MG PO (08:14)
--- NOTE | 2020-05-16 10:48 | WPDNEUROPN ---
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 Status: Acute (4) Lower extremity edema: Code(s): R60.0 - Localized edema Status: Acute (5) Abscess of back: Code(s): L02.212 - Cutaneous abscess of back [any part, except buttock] Status: Acute Additional Plan feeling better, pain level is down, no neurological deficit at this stage Review of Systems Review of Systems: All systems reviewed & are unremarkable except as noted in HPI and below Exam Const: General: cooperative, comfortable and no acute distress Limitations: other limitations HENMT: Head: normocephalic Ears: hearing grossly normal bilaterally General nose exam: Normal external nose present Mouth: Yes Normal oral and palatal mucosa present Eyes: General: appearance normal, both eyes and all related structures Neck: Neck: full ROM Resp: Effort & Inspection: able to speak in complete sentences Cardio: Rate: regular rate Neuro: General: patient oriented x3 Cranial nerves: Yes CN's II-XII intact bilaterally Cognition (Neuro): normal cognition Speech: normal speech Sensory Exam: normal sensation Deep tendon reflexes (DTR's): Right triceps reflex intensity grade: 1+, Left triceps reflex intensity grade: 1+, Rt Biceps (C5, C6): 1+, Left biceps reflex intensity grade: 1+, Right brachioradialis reflex intensity grade: 1+, Left brachioradialis reflex intensity grade: 1+, Right patellar reflex intensity grade: 1+, Left patellar reflex intensity grade: 1+, Right ankle reflex intensity grade: 1+ and Left ankle reflex intensity grade: 1+ Plantar Reflex Responses: downgoing: bilateral Psych: Appearance: grossly normal Objective Data Vital Signs Vital Signs: Vital Signs - 24 hr 05/15/20 13:47 05/15/20 14:00 05/15/20 20:00 Temperature 36.4 C L 37.2 C Pulse Rate 84 91 96 Respiratory Rate 16 16 Blood Pressure 119/64 157/84 H Pulse Oximetry 100 97 05/15/20 20:26 05/16/20 06:00 05/16/20 08:11 Temperature 36.6 C Pulse Rate 90 83 87 Respiratory Rate 18 Blood Pressure 150/80 H Pulse Oximetry 95 Intake/Output Intake/Output: Intake & Output 05/13/20 05/14/20 05/15/20 05/16/20 23:59 23:59 23:59 23:59 Intake Total 1500 1340 2070 50 Output Total 2200 700 900 Balance -315 660 5854 50 Meds/Results Medications: Active Medications Generic Name Dose Route Start Last Admin Trade Name Freq PRN Reason Stop Dose Admin Acetaminophen 650 mg 05/11/20 23:46 Acetaminophen 325 Mg Tablet PO Q4H PRN Fever Hydrocodone Bitart/Acetaminophen 1 tab 05/11/20 18:45 05/15/20 20:22 Hydrocodone/Acetaminophen (*Crx) 5-325 Mg Tablet PO 1 tab Q4H PRN Administration Pain Rated 4-6 Carvedilol 3.125 mg 05/11/20 23:50 05/16/20 08:11 Carvedilol 3.125 Mg Tablet PO 3.125 mg Q12HR BRANT Administration Dextrose 12.5 gm 05/11/20 22:08 Dextrose 50% 25 Gm/50 Ml Syringe IV PUSH PRN PRN Hypoglycemia Protocol Dicyclomine HCl 20 mg 05/14/20 14:32 Dicyclomine Hcl 10 Mg Capsule PO QID PRN Abdominal Cramping Duloxetine HCl 60 mg 05/12/20 09:00 05/16/20 08:12 Duloxetine Hcl 60 Mg Capsule.Dr PO 60 mg DAILY BRANT Administration Glucagon 1 mg 05/11/20 22:08 Glucagon For Inj 1 Mg Vial IM PRN PRN Hypoglycemia Protocol Glucose 15 gm 05/11/20 22:08 Glucose Oral Gel 15 Gm Of Glucse In 37.5 Gm Tube PO PRN PRN Hypoglycemia Protocol Dextrose 1,000 mls @ 100 mls/hr 05/11/20 22:08 Dextrose 5% 1,000 Ml IVPB PRN PRN Hypoglycemia Protocol Cefazolin Sodium 1 gm in 50 mls @ 100 mls/hr 05/15/20
--- NOTE | 2020-05-16 11:22 | PM.IMPN ---
Progress Note: A&P Assessment and Plan (1) Sepsis: Code(s): A41.9 - Sepsis, unspecified organism Status: Acute Assessment and Plan: The patient met sepsis criteria on admission with tachycardia, fever, and leukocytosis in the setting of infection secondary to abscess of back. Lactic acid 1.7. T-max of 100.7? 05/11/20. He has been afebrile since 05/11/20. Leukocytosis and tachycardia resolved. Continue IV antibiotics Monitor vital signs closely and trend labs (2) Bacteremia: Code(s): R78.81 - Bacteremia Status: Acute Assessment and Plan: Blood cultures demonstrate methicillin sensitive S. aureus in 2/2 bottles. Source of infection is likely abscess. Continue IV Ancef per ID recommendations (initiated 05/15/20). IV Vancomycin and Primaxin discontinued Infectious disease has been consulted and recommendations regarding antibiotic therapy duration are appreciated. Long-term IV antibiotics are anticipated and care coordination is working on discharge planning. SNF is recommended. (3) Abscess of back: Code(s): L02.212 - Cutaneous abscess of back [any part, except buttock] Status: Acute Assessment and Plan: Approximately 8 cm. S/P I&D in emergency department on 05/11/2020 and S/P bedside I&D by Dr. Ramirez on 05/14/20. Pain is improving. He does have a history of skin abscesses with confirmed MRSA infection in the past. Wound cultures growing methicillin sensitive Staph aureus. Thoracic/lumbar spine MRI performed 05/15/20 demonstrated extensive subcutaneous cellulitis in the posterior thorax and myositis in the right trapezius with no findings to suggest residual abscess, diskitis, or deep space infection. Appreciate general surgery consultation and input. Wound care will be deferred to general surgery. IV Ancef as above with long-term IV antibiotics anticipated per infectious disease recommendations Analgesics available as needed for pain (4) Episode of generalized weakness: Code(s): R53.1 - Weakness Status: Acute Assessment and Plan: On 05/12/20, patient had sudden, acute onset of generalized weakness and lethargy with truncal instability as well as dysphasia. He had no focal neuro deficits. Head CT negative for acute findings. EKG was unremarkable. TSH, B12, Folate, ammonia wnl. MRI cervical, lumbar and thoracic spine shows no evidence of diskitis or deep space infection and symptoms have resolved. He does have mild cervical spondylosis. He notes generalized deconditioning following his prolonged hospital stay approximately 1 year ago but feels better overall. Appreciate neurology consultation Continue PT/OT (5) Cholelithiasis: Code(s): K80.20 - Calculus of gallbladder without cholecystitis without obstruction Status: Inactive Assessment and Plan: Endorsing RUQ pain and diminished appetite. He has known history of gallstones but was not approved for cholecystectomy by [facility] due to uncontrolled DM. U/S shows cholelithiasis with mild gallbladder wall thickening, trace pericholecystic fluid and positive sonographic Malone sign. General surgery following and input is appreciated. Continue low fat diet with elective laparoscopic cholecystectomy outpatient with the [facility] or Dr. Guerrero's group (6) Weight loss: Code(s): R63.4 - Abnormal weight loss Status: Acute Assessment and Plan: Patient reports unintentional 70 lb weight loss in 1 year. Etiology not entirely clear, however I suspect this is due to ongoing abdominal pain related likely to cholelithiasis and poor control of diabetes. He reports that his pain keeps him in bed 23 hours a day and he has poor appetite. TSH wnl. HIV negative. Fecal occult blood test negative. Patient reports he had colonoscopy and EGD 1 month ago with no acute findings. General surgery following. He will likely need outpatient elective cholecystectomy. Can consider CT a
--- NOTE | 2020-05-16 11:42 | PM.PNGS ---
Progress Note: A&P Assessment and Plan (1) Abscess of back: Code(s): L02.212 - Cutaneous abscess of back [any part, except buttock] Status: Acute Assessment and Plan: POD#2 I&D of back abscess. Now adequately drained. Continue local wound care with daily packing. Continue abx per ID. (2) Cholelithiasis with chronic cholecystitis: Code(s): K80.10 - Calculus of gallbladder with chronic cholecystitis without obstruction Status: Acute Assessment and Plan: Stable, no acute issues. Tolerating a low fat diet, recommend continuing this on discharge. F/u with the [facility] or our services as an outpatient regarding possible cholecystectomy. (3) Bacteremia: Code(s): R78.81 - Bacteremia Status: Acute Assessment and Plan: + blood cx 2/2 staph aureus. ID following. Continue abx per ID, expected to be prolonged IV abx therapy. 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 Additional Plan Discussed the patient's plan of care with Dr. Guerrero. Subjective Subjective Date/Time Seen: 05/16/20 11:00 Post Op day: 2 (I&D back abscess) Patient reports: no new complaints and feels better Interval history: Patient reports back pain is improving with overall tenderness. No fever/chills. Review of Systems Review of Systems: All systems reviewed & are unremarkable except as noted in HPI and below Constitutional: Constitutional: Denies chills and Denies fever(s) Exam Const: General: comfortable, no acute distress and alert Orientation/consciousness: patient oriented x3 Skin: Other: I removed the dressing and packing of the upper back abscess, there is about a 4-5 cm open incision with minima slough in the base of the wound, no purulent drainage or tunneling. Some surrounding induration. Erythema improving. Psych: Mental Status: mental status grossly normal Insight: Good insight present (Psych) Judgement: Good judgement present (Psych) Objective Data Vital Signs Vital Signs: Vital Signs - 24 hr 05/15/20 13:47 05/15/20 14:00 05/15/20 20:00 Temperature 97.5 F L 99.0 F Pulse Rate 84 91 96 Respiratory Rate 16 16 Blood Pressure 119/64 157/84 H Pulse Oximetry 100 97 05/15/20 20:26 05/16/20 06:00 05/16/20 08:11 Temperature 97.8 F Pulse Rate 90 83 87 Respiratory Rate 18 Blood Pressure 150/80 H Pulse Oximetry 95 Intake/Output Intake/Output: Intake & Output 05/13/20 05/14/20 05/15/20 05/16/20 23:59 23:59 23:59 23:59 Intake Total 1500 1340 2070 50 Output Total 2200 700 900 Balance -403 941 1596 50 Meds/Results Medications: Active Medications Generic Name Dose Route Start Last Admin Trade Name Freq PRN Reason Stop Dose Admin Acetaminophen 650 mg 05/11/20 23:46 Acetaminophen 325 Mg Tablet PO Q4H PRN Fever Hydrocodone Bitart/Acetaminophen 1 tab 05/11/20 18:45 05/15/20 20:22 Hydrocodone/Acetaminophen (*Crx) 5-325 Mg Tablet PO 1 tab Q4H PRN Administration Pain Rated 4-6 Carvedilol 3.125 mg 05/11/20 23:50 05/16/20 08:11 Carvedilol 3.125 Mg Tablet PO 3.125 mg Q12HR BRANT Administration Dextrose 12.5 gm 05/11/20 22:08 Dextrose 50% 25 Gm/50 Ml Syringe IV PUSH PRN PRN Hypoglycemia Protocol Dicyclomine HCl 20 mg 05/14/20 14:32 Dicyclomine Hcl 10 Mg Capsule PO QID PRN Abdominal Cramping Docusate Sodium 100 mg 05/16/20 13:00 Docusate Sodium 100 Mg Capsule PO Q12HR BRANT Duloxetine HCl 60 mg 05/12/20 09:00 05/16/20 08:12 Duloxetine Hcl 60 Mg Capsule.Dr PO 60 mg DAILY BRANT Administration Glucagon 1 mg 05/11/20 22:08 Glucagon For Inj 1 Mg Vial IM PRN PRN Hypoglycemia Protoco
[2020-05-16 11:57] LABS: Glucose Point of Care 109 (65-105)
--- NOTE | 2020-05-16 13:07 | CONS_ITS ---
DATE OF CONSULTATION: 05/15/2020 REASON FOR CONSULTATION: Bacteremia. HISTORY OF PRESENT ILLNESS: A 54-year-old male with psoriasis. For the last month and half, he has been on a biologic in the form of apremilast. He had not been on previous biologics, was on topical therapy previously. About a year ago, he had a right lateral gluteus infection with MRSA, received IV antibiotics not under my direction. He required wound VAC for some 3 months by his description and there was slow healing. He was not on long-term antibiotics. He was admitted to hospital on May 11 with several days of increasing pain over the lower thoracic spine area with swelling noted of the skin without preceding trauma. He has been seen by Neurology and by Dr. Ramirez. He was taken to the operating room yesterday, where he underwent incision and drainage of a back abscess. Findings included loculations, purulent fluid. The wound was left open and packed. He was initially given imipenem and vancomycin, now vancomycin day 5. He feels somewhat better today. He was seen by Neurology for unclear reasons. He has known diabetic peripheral neuropathy. No fever, chills, sweats. ALLERGIES: NONE KNOWN. PRESENT MEDICATIONS: List reviewed. No other immunosuppressants. HABITS: Ex-smoker. Rare alcohol. No illicit drugs. PAST MEDICAL HISTORY: Poorly controlled diabetes, skin grafting for the above hip infection, hypertension, gallstones, inguinal hernias, and the psoriasis. REVIEW OF SYSTEMS: Skin, constitutional, musculoskeletal, respiratory, GI, otherwise negative. FAMILY HISTORY: COPD, heart disease. SOCIAL HISTORY: Lives locally. Currently unemployed and single. PHYSICAL EXAMINATION: GENERAL: Thin, not cachectic. No respiratory distress. VITAL SIGNS: Temperature 38.2 shortly after arrival, otherwise afebrile since, 172/79, 86, 12, 98% on room air. SKIN: Typical psoriasis over torso, arms, and legs. In terms of skin area, extensive. NODES: No cervical adenopathy. EENT: Conjunctivae are normal. Pupils equal, round. NECK: No thyromegaly. No meningismus. LUNGS: Clear to auscultation and percussion. Good air entry. BACK: Intraoperative surgical dressing in place. I did not remove. He has no surrounding erythema. CARDIAC: Regular rate and rhythm. No murmurs or gallops. Pulses 2+. ABDOMEN: Tender right side, nondistended, firm. No guarding. EXTREMITIES: No clubbing, cyanosis, edema. Defect of skin contour lateral left buttock without any sign of sinus tract erythema or tenderness or fluctuance. LABORATORY DATA: Blood cultures 2/2 sets, susceptible Staph aureus and wound culture obtained in the emergency room, same organism. White count 7.5, hemoglobin 11.3, platelets 222. No differential done recently, earlier showed minimal left shift. Sodium is 136, BUN 8, creatinine 0.6. His Accu-Cheks in the 200 range. His hemoglobin A1c 11.5%, calcium low, but his albumin is 2.9 also. Transaminases low to normal. CRP is 8.0, down from 22.4. His HIV nonreactive. RADIOLOGY: Thoracic and lumbar spine MRI just completed, shows no diskitis nor deep space infection and no residual abscess. Cervical spine MRI, spondylosis. Right upper quadrant ultrasound, gallstones. Chest x-ray normal. ASSESSMENT: 1. Staphylococcus aureus bacteremia, skin source, improving. 2. Back abscess, perhaps sebaceous cyst that became infected, postop day 1, same organism. 3. Immunosuppressed. 4. 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 RECOMMENDATIONS: 1. The apremilast will need to be held for the duration of his present illness. 2. Stop vancomycin, put on Ancef. 3. Prolonged IV antibiotics anticipated. 4. Glycemic control. Thank you guicho
[2020-05-16] MEDS: DOCUSATE SODIUM 100 MG CAPSULE PO ×2 (14:01→20:52)
[2020-05-16 14:11] VITALS: BP 149/68; PULSE 85; RESP 16; TEMP 36.1; O2SAT 97
--- NOTE | 2020-05-16 15:42 | PC.NURSE ---
1, Monica Kumar clinical instructor for [employer], have reviewed and approve student nurse - Evelyn Rogesr's charting for the today
[2020-05-16 16:32] LABS: Glucose Point of Care 266 (65-105)
[2020-05-16 20:44] VITALS: BP 175/75; PULSE 88; RESP 16; TEMP 36.6; O2SAT 98
[2020-05-16 20:51] LABS: Glucose Point of Care 240 (65-105)
[2020-05-16] MEDS: MELATONIN 3 MG TABLET 9 MG PO (20:52)
[2020-05-16] MEDS: ENOXAPARIN 40 MG/0.4 ML SYRINGE SUB-Q (20:52)
[2020-05-16 20:53] VITALS: PULSE 88
[2020-05-16] MEDS: INSULIN GLARGINE (*BKC) 100 UNITS/ML 24 UNITS SUB-Q (20:59)
[2020-05-17 05:27] VITALS: BP 163/77; PULSE 83; RESP 16; TEMP 36.6; O2SAT 98
[2020-05-17] MEDS: MORPHINE SULFATE (*CRX) 2 MG/ML INJ IV PUSH (05:38)
[2020-05-17 06:13] LABS: Anion Gap 2 mmol/L (8-16); Basophils Absolute Auto 0.1 K/mm3 (0.0-0.1); Basophils Percent Auto 0.8 % (0.2-1.2); Blood Urea Nitrogen 11 mg/dL (9-20); Calcium 8.5 mg/dL (8.4-10.2); Carbon Dioxide 32 mmol/L (22-30); Chloride 103 mmol/L (98-107); Eosinophils Absolute Auto 0.5 K/mm3 (0-0.3); Eosinophils Percent Auto 5.3 % (0-4.4); Estimated CRCL calculation 129 ml/min; Estimated Glomerular Filt Rate > 60; Glucose 173 mg/dL (75-110); Hematocrit 36.1 % (42.0-52.0); Hemoglobin 12.4 g/dL (14.0-18.0); Immature Granulocyte Absolute 0.12 K/mm3 (0.00-0.031); Immature Granulocyte Percent A 1.4 % (0-0.5); Lymphocytes Absolute Auto 1.69 K/mm3 (0.9-3.2); Lymphocytes Percent Auto 19.5 % (18.3-44.2); Magnesium 1.9 mg/dL (1.6-2.3); Mean Corpuscular HGB Conc 34.3 g/dl (32-36); Mean Corpuscular Hemoglobin 30.7 pg (26-34); Mean Corpuscular Volume 89.4 fl (80-100); Mean Platelet Volume 9.4 fl (7.4-10.4); Monocytes Absolute Auto 0.6 K/mm3 (0.1-0.6); Monocytes Percent Auto 7.4 % (2.6-8.5); Neutrophils Absolute Auto 5.7 K/mm3 (1.3-6.7); Neutrophils Percent Auto 65.6 % (45.5-73.1); Platelet Count Result 283 k/mm3 (150-375); Potassium 4.2 mmol/L (3.4-5.0); Red Blood Count 4.04 M/mm3 (4.6-6.20); Red Cell Distribution Width 11.4 % (11.5-14.5); Sodium 137 mmol/L (137-145); White Blood Count 8.7 K/mm3 (4.5-10.0)
--- NOTE | 2020-05-17 07:24 | PC.NURSE ---
Phone call to real estate attorney and voicemail left.
[2020-05-17 07:43] LABS: Glucose Point of Care 155 (65-105)
[2020-05-17] MEDS: PREGABALIN (*CRX) 75 MG CAPSULE 150 MG PO (08:08)
[2020-05-17] MEDS: PANTOPRAZOLE SOD SESQUIHYDRATE 20 MG TAB PO (08:09)
[2020-05-17] MEDS: DULoxetine HCL 60 MG CAPSULE.DR PO (08:09)
[2020-05-17] MEDS: DOCUSATE SODIUM 100 MG CAPSULE PO ×2 (08:09→20:57)
[2020-05-17] MEDS: carvediloL 3.125 MG TABLET PO ×2 (08:10→20:57)
[2020-05-17] MEDS: QUEtiapine FUMARATE 100 MG TABLET PO (08:10)
[2020-05-17] MEDS: metFORMIN HCL 500 MG TABLET PO (08:11)
[2020-05-17] MEDS: INSULIN ASPART (*BKC) 100 UNITS/ML SUB-Q ×3 (08:12→17:56)
[2020-05-17] MEDS: HYDROcodone/acetaminophen (*CRX) 5-325 MG TABLET 1 TAB PO ×3 (08:31→20:57)
[2020-05-17] MEDS: amLODIPine BESYLATE 5 MG TABLET PO (10:21)
--- NOTE | 2020-05-17 10:23 | PM.IMPN ---
Progress Note: A&P Assessment and Plan (1) Sepsis: Code(s): A41.9 - Sepsis, unspecified organism Status: Acute Assessment and Plan: The patient met sepsis criteria on admission with tachycardia, fever, and leukocytosis in the setting of infection secondary to abscess of back with MSSA bacteremia. Lactic acid 1.7. T-max of 100.7? 05/11/20. He has been afebrile since 05/11/20. Leukocytosis and tachycardia resolved. Continue IV cefazolin, long-term IV antibiotics are anticipated Monitor vital signs closely and trend labs Repeat blood cultures were ordered and are pending (2) Bacteremia: Code(s): R78.81 - Bacteremia Status: Acute Assessment and Plan: Blood cultures demonstrate methicillin sensitive S. aureus in 2/2 bottles. Source of infection is likely abscess. Continue IV Ancef per ID recommendations (initiated 05/15/20). IV Vancomycin and Primaxin discontinued. 4 weeks of antibiotic therapy is anticipated under the direction of infectious disease. Care coordination is working on discharge planning and SNF is anticipated. PICC line ordered. Repeat blood cultures ordered and pending (3) Abscess of back: Code(s): L02.212 - Cutaneous abscess of back [any part, except buttock] Status: Acute Assessment and Plan: Approximately 8 cm. S/P I&D in emergency department on 05/11/2020 and S/P bedside I&D by Dr. Ramirez on 05/14/20. Pain is improving. He does have a history of skin abscesses with confirmed MRSA infection in the past. Wound cultures growing methicillin sensitive Staph aureus. Thoracic/lumbar spine MRI performed 05/15/20 demonstrated extensive subcutaneous cellulitis in the posterior thorax and myositis in the right trapezius with no findings to suggest residual abscess, diskitis, or deep space infection. Appreciate general surgery consultation and input. Wound care will be deferred to general surgery. He will need to follow-up with general surgery, Dr. Guerrero, outpatient and will have local wound care under direction of general surgery through SNF. IV Ancef as above with long-term IV antibiotics anticipated per infectious disease recommendations Analgesics available as needed for pain (4) Episode of generalized weakness: Code(s): R53.1 - Weakness Status: Acute Assessment and Plan: On 05/12/20, patient had sudden, acute onset of generalized weakness and lethargy with truncal instability as well as dysphasia. He had no focal neuro deficits. Head CT negative for acute findings. EKG was unremarkable. TSH, B12, Folate, ammonia wnl. MRI cervical, lumbar and thoracic spine shows no evidence of diskitis or deep space infection and symptoms have resolved. He does have mild cervical spondylosis. He notes generalized deconditioning following his prolonged hospital stay approximately 1 year ago but feels better overall. Appreciate neurology consultation Continue PT/OT (5) Cholelithiasis: Code(s): K80.20 - Calculus of gallbladder without cholecystitis without obstruction Status: Inactive Assessment and Plan: Endorsing RUQ pain and diminished appetite. He has known history of gallstones but was not approved for cholecystectomy by [facility] due to uncontrolled DM. U/S shows cholelithiasis with mild gallbladder wall thickening, trace pericholecystic fluid and positive sonographic Malone sign. General surgery following and input is appreciated. Continue low fat diet with elective laparoscopic cholecystectomy outpatient with the [facility] or Dr. Guerrero's group. He will see Dr. Guerrero in 2 weeks to discuss this. (6) Weight loss: Code(s): R63.4 - Abnormal weight loss Status: Acute Assessment and Plan: Patient reports unintentional 70 lb weight loss in 1 year. Etiology not entirely clear, however I suspect this is due to ongoing abdominal pain related likely to cholelithiasis and poor control of diabetes. He reports that his p
[2020-05-17 11:40] LABS: Glucose Point of Care 155 (65-105)
[2020-05-17 13:29] VITALS: BP 124/62; PULSE 84; RESP 16; TEMP 36.3; O2SAT 99
--- NOTE | 2020-05-17 13:30 | WPDINFPN2 ---
Progress Note: A&P Assessment and Plan (1) Bacteremia: Code(s): R78.81 - Bacteremia Status: Acute Assessment and Plan: 1. MAURISIO bacteremia with infection, skin source. 2. DM poor control 3. Immunosuppressed REC Ancef # 2 (antibiotic #6), glycemic control, redo BCs, PICC for 4 weeks IV rx Subjective Date/time seen: 05/17/20 13:30 Objective Data Vital Signs Vital Signs: Vital Signs - 24 hr 05/16/20 14:11 05/16/20 20:44 05/16/20 20:53 Temperature 36.1 C L 36.6 C Pulse Rate 85 88 88 Respiratory Rate 16 16 Blood Pressure 149/68 H 175/75 H Pulse Oximetry 97 98 05/17/20 05:27 Temperature 36.6 C Pulse Rate 83 Respiratory Rate 16 Blood Pressure 163/77 H Pulse Oximetry 98 Intake/Output Intake/Output: Intake & Output 05/14/20 05/15/20 05/16/20 05/17/20 23:59 23:59 23:59 23:59 Intake Total 1340 2070 930 580 Output Total 700 900 Balance 640 1170 930 580 Meds/Results Medications: Active Medications Generic Name Dose Route Start Last Admin Trade Name Freq PRN Reason Stop Dose Admin Acetaminophen 650 mg 05/11/20 23:46 Acetaminophen 325 Mg Tablet PO Q4H PRN Fever Hydrocodone Bitart/Acetaminophen 1 tab 05/11/20 18:45 05/17/20 13:05 Hydrocodone/Acetaminophen (*Crx) 5-325 Mg Tablet PO 1 tab Q4H PRN Administration Pain Rated 4-6 Amlodipine Besylate 5 mg 05/17/20 09:00 05/17/20 10:21 Amlodipine Besylate 5 Mg Tablet PO 5 mg QAM BRANT Administration Carvedilol 3.125 mg 05/11/20 23:50 05/17/20 08:10 Carvedilol 3.125 Mg Tablet PO 3.125 mg Q12HR BRANT Administration Dextrose 12.5 gm 05/11/20 22:08 Dextrose 50% 25 Gm/50 Ml Syringe IV PUSH PRN PRN Hypoglycemia Protocol Dicyclomine HCl 20 mg 05/14/20 14:32 Dicyclomine Hcl 10 Mg Capsule PO QID PRN Abdominal Cramping Docusate Sodium 100 mg 05/16/20 13:00 05/17/20 08:09 Docusate Sodium 100 Mg Capsule PO 100 mg Q12HR BRANT Administration Duloxetine HCl 60 mg 05/12/20 09:00 05/17/20 08:09 Duloxetine Hcl 60 Mg Capsule.Dr PO 60 mg DAILY BRANT Administration Enoxaparin Sodium 40 mg 05/16/20 21:00 05/16/20 20:52 Enoxaparin 40 Mg/0.4 Ml Syringe SUB-Q 40 mg HS BRANT Administration Glucagon 1 mg 05/11/20 22:08 Glucagon For Inj 1 Mg Vial IM PRN PRN Hypoglycemia Protocol Glucose 15 gm 05/11/20 22:08 Glucose Oral Gel 15 Gm Of Glucse In 37.5 Gm Tube PO PRN PRN Hypoglycemia Protocol Dextrose 1,000 mls @ 100 mls/hr 05/11/20 22:08 Dextrose 5% 1,000 Ml IVPB PRN PRN Hypoglycemia Protocol Cefazolin Sodium 1 gm in 50 mls @ 100 mls/hr 05/15/20 12:00 05/17/20 06:08 Ancef 1 Gm/D5w 50 Ml Pm IVPB Infused Q8HR [facility] Infusion Insulin Aspart 4 - 8 units 05/12/20 08:00 05/17/20 12:06 Insulin Aspart (*Bkc) 100 Units/Ml SUB-Q Not Given TIDWM [facility] Protocol Insulin Aspart 5 units 05/13/20 17:00 05/17/20 12:09 Insulin Aspart (*Bkc) 100 Units/Ml 0.067 units/kg (5 units) 5 units SUB-Q Administration TIDWM [facility] Insulin Glargine 24 units 05/15/20 21:00 05/16/20 20:59 Insulin Glargine (*Bkc) 100 Units/Ml SUB-Q 24 units HS BRANT Administration Melatonin 9 mg 05/12/20 00:05 05/16/20 20:52 Melatonin 3 Mg Tablet PO 9 mg HS BRANT Administration Metformin HCl 500 mg 05/12/20 08:00 05/17/20 08:11 Metformin Hcl 500 Mg Tablet PO 500 mg DAILY@0800 BRANT Administration Morphine Sulfate 2 mg 05/14/20 13:02 05/17/20 05:38 Morphine Sulfate (*Crx) 2 Mg/Ml Inj IV PUSH 2 mg Q4H PRN Administration Pain Rated 7-10 Pantoprazole Sodium 20 mg 05/12/20 09:00 05/17/20 08:09 Pantoprazole Sod Sesquihydrate 20 Mg Tab PO 20 mg QAM BRANT Administration Polyethylene Glycol 17 gm 05/16/20 11:27 Polyethylene Glycol 3350 17 Gm Powd.Pack PO DAILY PRN Constipation Pregabalin 150 mg 05/12/20 09:00 05/17/20 08:08 Pr
--- NOTE | 2020-05-17 14:11 | PC.NURSE ---
On 05/17/20, the student, [ Shayy Anderson], provided care and completed [facility] documentation on this patient. I have reviewed the student's documentation and agree with the findings.
[2020-05-17 16:33] LABS: Glucose Point of Care 222 (65-105)
[2020-05-17 20:54] VITALS: BP 175/80; PULSE 89; RESP 16; TEMP 36.7; O2SAT 97
[2020-05-17 20:57] VITALS: PULSE 89
[2020-05-17] MEDS: MELATONIN 3 MG TABLET 9 MG PO (20:57)
[2020-05-17] MEDS: ENOXAPARIN 40 MG/0.4 ML SYRINGE SUB-Q (20:58)
[2020-05-17 21:07] LABS: Glucose Point of Care 237 (65-105)
[2020-05-17] MEDS: INSULIN GLARGINE (*BKC) 100 UNITS/ML 24 UNITS SUB-Q (22:38)
[2020-05-18 05:37] VITALS: BP 170/88; PULSE 83; RESP 18; TEMP 36.6; O2SAT 99
[2020-05-18] MEDS: MORPHINE SULFATE (*CRX) 2 MG/ML INJ IV PUSH ×2 (05:58→14:08)
[2020-05-18 06:12] LABS: Basophils Absolute Auto 0.1 K/mm3 (0.0-0.1); Basophils Percent Auto 0.8 % (0.2-1.2); Eosinophils Absolute Auto 0.6 K/mm3 (0-0.3); Eosinophils Percent Auto 7.7 % (0-4.4); Hematocrit 35.7 % (42.0-52.0); Hemoglobin 12.3 g/dL (14.0-18.0); Immature Granulocyte Absolute 0.11 K/mm3 (0.00-0.031); Immature Granulocyte Percent A 1.5 % (0-0.5); Lymphocytes Absolute Auto 1.72 K/mm3 (0.9-3.2); Mean Corpuscular HGB Conc 34.5 g/dl (32-36); Mean Corpuscular Hemoglobin 30.5 pg (26-34); Mean Corpuscular Volume 88.6 fl (80-100); Monocytes Absolute Auto 0.6 K/mm3 (0.1-0.6); Monocytes Percent Auto 8.1 % (2.6-8.5); Neutrophils Absolute Auto 4.1 K/mm3 (1.3-6.7); Neutrophils Percent Auto 57.9 % (45.5-73.1); Platelet Count Result 300 k/mm3 (150-375); Red Blood Count 4.03 M/mm3 (4.6-6.20); Red Cell Distribution Width 11.5 % (11.5-14.5); White Blood Count 7.2 K/mm3 (4.5-10.0)
[2020-05-18 06:24] LABS: Anion Gap 4 mmol/L (8-16); Blood Urea Nitrogen 13 mg/dL (9-20); Calcium 8.6 mg/dL (8.4-10.2); Carbon Dioxide 28 mmol/L (22-30); Chloride 104 mmol/L (98-107); Estimated CRCL calculation 151 ml/min; Estimated Glomerular Filt Rate > 60; Glucose 128 mg/dL (75-110); Sodium 136 mmol/L (137-145)
[2020-05-18] MEDS: LIDOCAINE HCL 1% PF INJ 5 ML VIAL INFILTRATE (07:45)
[2020-05-18 08:37] LABS: Glucose Point of Care 106 (65-105)
[2020-05-18 08:54] VITALS: PULSE 84
[2020-05-18] MEDS: DOCUSATE SODIUM 100 MG CAPSULE PO ×2 (08:54→21:09)
[2020-05-18] MEDS: QUEtiapine FUMARATE 100 MG TABLET PO (08:54)
[2020-05-18] MEDS: carvediloL 3.125 MG TABLET PO ×2 (08:54→21:10)
[2020-05-18] MEDS: amLODIPine BESYLATE 5 MG TABLET PO (08:54)
[2020-05-18] MEDS: PREGABALIN (*CRX) 75 MG CAPSULE 150 MG PO (08:54)
[2020-05-18] MEDS: DULoxetine HCL 60 MG CAPSULE.DR PO (08:54)
[2020-05-18] MEDS: PANTOPRAZOLE SOD SESQUIHYDRATE 20 MG TAB PO (08:54)
[2020-05-18] MEDS: metFORMIN HCL 500 MG TABLET PO (08:54)
[2020-05-18] MEDS: INSULIN ASPART (*BKC) 100 UNITS/ML SUB-Q ×4 (08:55→17:36)
--- NOTE | 2020-05-18 11:31 | PM.IMPN ---
Progress Note: A&P Assessment and Plan (1) Sepsis: Code(s): A41.9 - Sepsis, unspecified organism Status: Acute Assessment and Plan: The patient met sepsis criteria on admission with tachycardia, fever, and leukocytosis in the setting of infection secondary to abscess of back with MSSA bacteremia. Lactic acid 1.7. T-max of 100.7? 05/11/20. He has been afebrile since 05/11/20. Leukocytosis and tachycardia resolved. Continue IV cefazolin, long-term IV antibiotics are anticipated and infectious disease is on board with recommendations appreciated Monitor vital signs closely and trend labs Repeat blood cultures were ordered and are pending (2) Bacteremia: Code(s): R78.81 - Bacteremia Status: Acute Assessment and Plan: Blood cultures demonstrate methicillin sensitive S. aureus in 2/2 bottles. Source of infection is likely abscess. Continue IV Ancef per ID recommendations (initiated 05/15/20). IV Vancomycin and Primaxin discontinued. 4 weeks of antibiotic therapy is anticipated under the direction of infectious disease. Care coordination is working on discharge planning and SNF is anticipated with COVID-19 test pending for admission. PICC line is in place to the RUE. Repeat blood cultures ordered and pending (3) Abscess of back: Code(s): L02.212 - Cutaneous abscess of back [any part, except buttock] Status: Acute Assessment and Plan: Approximately 8 cm. S/P I&D in emergency department on 05/11/2020 and S/P bedside I&D by Dr. Ramirez on 05/14/20. Pain is improving. He does have a history of skin abscesses with confirmed MRSA infection in the past. Wound cultures growing methicillin sensitive Staph aureus. Thoracic/lumbar spine MRI performed 05/15/20 demonstrated extensive subcutaneous cellulitis in the posterior thorax and myositis in the right trapezius with no findings to suggest residual abscess, diskitis, or deep space infection. He continues to demonstrate clinical improvement. Appreciate general surgery consultation and input. Wound care will be deferred to general surgery. He will need to follow-up with general surgery, Dr. Guerrero, outpatient and will have local wound care under direction of general surgery through SNF. IV Ancef as above with long-term IV antibiotics per infectious disease recommendations, PICC in place Analgesics available as needed for pain (4) Episode of generalized weakness: Code(s): R53.1 - Weakness Status: Resolved Assessment and Plan: On 05/12/20, patient had sudden, acute onset of generalized weakness and lethargy with truncal instability as well as dysphasia. He had no focal neuro deficits. Head CT negative for acute findings. EKG was unremarkable. TSH, B12, Folate, ammonia wnl. MRI cervical, lumbar and thoracic spine shows no evidence of diskitis or deep space infection and symptoms have resolved. He does have mild cervical spondylosis. He notes generalized deconditioning following his prolonged hospital stay approximately 1 year ago but feels better overall. Appreciate neurology consultation Continue PT/OT (5) Cholelithiasis: Code(s): K80.20 - Calculus of gallbladder without cholecystitis without obstruction Status: Inactive Assessment and Plan: Endorsing RUQ pain and diminished appetite. He has known history of gallstones but was not approved for cholecystectomy by [facility] due to uncontrolled DM. U/S shows cholelithiasis with mild gallbladder wall thickening, trace pericholecystic fluid and positive sonographic Malone sign. General surgery following and input is appreciated. Continue low fat diet with elective laparoscopic cholecystectomy outpatient once he resolves from his acute illness and is adequately treated for his bacteremia. He will see Dr. Guerrero in 2 weeks to discuss this. (6) Weight loss: Code(s): R63.4 - Abnormal weight loss Status: Acute Assessment and Plan:
[2020-05-18 11:46] LABS: Glucose Point of Care 184 (65-105)
[2020-05-18] MEDS: CENTRAL LINE FLUSH 10 ML IV PUSH ×2 (14:04→21:10)
--- NOTE | 2020-05-18 14:44 | WPDINFPN2 ---
Progress Note: A&P Assessment and Plan (1) Bacteremia: Code(s): R78.81 - Bacteremia Status: Acute Assessment and Plan: 1. MAURISIO bacteremia with infection, skin source. Repeat BCs ng at 1 day, and I anticipate that they will remain negative 2. DM poor control as outpatient, better here 3. Immunosuppressed REC Ancef # 3 (antibiotic #7), glycemic control, PICC in place. IV rx through 06/08/20. Ok home or SNF, will see prn. No apremilast until September (3 months after IV completion) Subjective Date/time seen: 05/18/20 14:44 Interval history: no complaints, wound packed Exam Narrative: Exam Narrative: afebrile Const: General: no acute distress Eyes: General: appearance normal, both eyes and all related structures Resp: Effort & Inspection: normal respiratory effort Auscultation: clear to auscultation bilaterally Cardio: Rate: regular rate Rhythm: regular rhythm Heart sounds: no murmurs Skin: General skin exam: normal color and no rashes or lesions noted Objective Data Vital Signs Vital Signs: Vital Signs - 24 hr 05/17/20 20:54 05/17/20 20:57 05/18/20 05:37 Temperature 36.7 C 36.6 C Pulse Rate 89 89 83 Respiratory Rate 16 18 Blood Pressure 175/80 H 170/88 H Pulse Oximetry 97 99 05/18/20 08:54 Temperature Pulse Rate 84 Respiratory Rate Blood Pressure Pulse Oximetry Intake/Output Intake/Output: Intake & Output 05/15/20 05/16/20 05/17/20 05/18/20 23:59 23:59 23:59 23:59 Intake Total 2070 930 920 680 Output Total 900 Balance 1170 930 920 680 Meds/Results Medications: Active Medications Generic Name Dose Route Start Last Admin Trade Name Freq PRN Reason Stop Dose Admin Acetaminophen 650 mg 05/11/20 23:46 Acetaminophen 325 Mg Tablet PO Q4H PRN Fever Hydrocodone Bitart/Acetaminophen 1 tab 05/11/20 18:45 05/17/20 20:57 Hydrocodone/Acetaminophen (*Crx) 5-325 Mg Tablet PO 1 tab Q4H PRN Administration Pain Rated 4-6 Amlodipine Besylate 5 mg 05/17/20 09:00 05/18/20 08:54 Amlodipine Besylate 5 Mg Tablet PO 5 mg QAM BRANT Administration Carvedilol 3.125 mg 05/11/20 23:50 05/18/20 08:54 Carvedilol 3.125 Mg Tablet PO 3.125 mg Q12HR BRANT Administration Dextrose 12.5 gm 05/11/20 22:08 Dextrose 50% 25 Gm/50 Ml Syringe IV PUSH PRN PRN Hypoglycemia Protocol Dicyclomine HCl 20 mg 05/14/20 14:32 Dicyclomine Hcl 10 Mg Capsule PO QID PRN Abdominal Cramping Docusate Sodium 100 mg 05/16/20 13:00 05/18/20 08:54 Docusate Sodium 100 Mg Capsule PO 100 mg Q12HR BRANT Administration Duloxetine HCl 60 mg 05/12/20 09:00 05/18/20 08:54 Duloxetine Hcl 60 Mg Capsule.Dr PO 60 mg DAILY BRANT Administration Enoxaparin Sodium 40 mg 05/16/20 21:00 05/17/20 20:58 Enoxaparin 40 Mg/0.4 Ml Syringe SUB-Q 40 mg HS BRANT Administration Glucagon 1 mg 05/11/20 22:08 Glucagon For Inj 1 Mg Vial IM PRN PRN Hypoglycemia Protocol Glucose 15 gm 05/11/20 22:08 Glucose Oral Gel 15 Gm Of Glucse In 37.5 Gm Tube PO PRN PRN Hypoglycemia Protocol Dextrose 1,000 mls @ 100 mls/hr 05/11/20 22:08 Dextrose 5% 1,000 Ml IVPB PRN PRN Hypoglycemia Protocol Cefazolin Sodium 1 gm in 50 mls @ 100 mls/hr 05/15/20 12:00 05/18/20 14:04 Ancef 1 Gm/D5w 50 Ml Pm IVPB 100 mls/hr Q8HR BRANT Administration Insulin Aspart 4 - 8 units 05/12/20 08:00 05/18/20 11:55 Insulin Aspart (*Bkc) 100 Units/Ml SUB-Q Not Given TIDWM [facility] Protocol Insulin Aspart 5 units 05/13/20 17:00 05/18/20 12:04 Insulin Aspart (*Bkc) 100 Units/Ml 0.067 units/kg (5 units) 5 units SUB-Q Administration TIDWM [facility] Insulin Glargine 24 units 05/15/20 21:00 05/17/20 22:38 Insulin Glargine (*Bkc) 100 Units/Ml SUB-Q 24 units HS BRANT Administration Melatonin 9 mg 05/12/20 00:05 05/17/20 20:57 Melatonin 3 Mg Tablet PO 9 mg HS BRANT
[2020-05-18 15:28] VITALS: BP 100/58; PULSE 93; RESP 16; TEMP 36.8; O2SAT 100
[2020-05-18 17:21] LABS: Glucose Point of Care 212 (65-105)
[2020-05-18 17:24] VITALS: BP 148/86
[2020-05-18 20:53] LABS: SARS-CoV-2 RNA PCR Negative
[2020-05-18 21:10] VITALS: PULSE 97
[2020-05-18] MEDS: ENOXAPARIN 40 MG/0.4 ML SYRINGE SUB-Q (21:10)
[2020-05-18] MEDS: INSULIN GLARGINE (*BKC) 100 UNITS/ML 24 UNITS SUB-Q (21:12)
[2020-05-18] MEDS: MELATONIN 3 MG TABLET 9 MG PO (21:12)
[2020-05-18] MEDS: HYDROcodone/acetaminophen (*CRX) 5-325 MG TABLET 1 TAB PO (21:12)
[2020-05-18 21:24] VITALS: BP 155/67; PULSE 96; RESP 17; TEMP 36.7; O2SAT 99
[2020-05-18 21:27] LABS: Glucose Point of Care 204 (65-105)
[2020-05-19] MEDS: CENTRAL LINE FLUSH 10 ML IV PUSH (05:50)
[2020-05-19 06:10] VITALS: BP 161/86; PULSE 80; RESP 16; TEMP 36.1; O2SAT 98
[2020-05-19 07:53] LABS: Glucose Point of Care 196 (65-105)
[2020-05-19 08:07] VITALS: PULSE 86
[2020-05-19] MEDS: DULoxetine HCL 60 MG CAPSULE.DR PO (08:07)
[2020-05-19] MEDS: PANTOPRAZOLE SOD SESQUIHYDRATE 20 MG TAB PO (08:07)
[2020-05-19] MEDS: PREGABALIN (*CRX) 75 MG CAPSULE 150 MG PO (08:07)
[2020-05-19] MEDS: amLODIPine BESYLATE 5 MG TABLET PO (08:07)
[2020-05-19] MEDS: HYDROcodone/acetaminophen (*CRX) 5-325 MG TABLET 1 TAB PO (08:07)
[2020-05-19] MEDS: carvediloL 6.25 MG TABLET PO (08:07)
[2020-05-19] MEDS: DOCUSATE SODIUM 100 MG CAPSULE PO (08:07)
[2020-05-19] MEDS: metFORMIN HCL 500 MG TABLET PO (08:07)
[2020-05-19] MEDS: QUEtiapine FUMARATE 100 MG TABLET PO (08:07)
[2020-05-19] MEDS: INSULIN ASPART (*BKC) 100 UNITS/ML SUB-Q (08:08)
--- NOTE | 2020-05-19 09:56 | PM.DS ---
DS: Admitting Diagnosis Admitting Diagnosis Admitting Diagnosis: Abscess of back DS: Discharge Diagnosis Discharge Diagnosis (1) Abscess of back: Code(s): L02.212 - Cutaneous abscess of back [any part, except buttock] Status: Acute Assessment and Plan: Discharge Summary (Date of service 05/19/20): Mr. Ascencio is a 54 y.o. 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 He was seen at urgent care initially and they referred him to the emergency department as they felt that he needed surgical intervention. SIRS criteria met on admission with tachycardia, fever, and leukocytosis. Initial workup in the emergency department was notable for WBC 16,700 with neutrophile predominance and left shift, lactic acid normal, sodium of 130, chloride 96, glucose 358, CXR unremarkable. Blood cultures were obtained and he was treated with IV vancomycin and imipenem given his hx of MRSA. The abscess was incised and drained in the emergency department and he noticed significant improvement in his pain. General surgery was consulted and he was admitted to the hospitalist service. He underwent bedside incision and drainage by Dr. Ramirez on 05/14/20. Wound cultures demonstrated methicillin sensitive Staph aureus. Thoracic/lumbar spine MRI performed 05/15/20 demonstrated extensive subcutaneous cellulitis in the posterior thorax and myositis in the right trapezius with no findings to suggest residual abscess, diskitis, or deep space infection. He improved significantly with IV antibiotics and incision and drainage. His WBC normalized and he was afebrile since 05/11/20. Insulin regimen was adjusted in order to obtain better glycemic control given poor control with hemoglobin A1c 11.5%. He has chronic biliary colic and cholelithiasis and general surgery recommended outpatient cholecystectomy which he will discuss at his follow-up appointment in [address] Guerrero, once he recovers from his acute illness and is adequately treated for bacteremia. Low fat diet was advised. He initially thought he wanted to go home at discharge however he did not have someone who could reliably help with daily wound care on the days home health would not be there. He also had to boil all his water as he had no hot water and was behind on his rent so care coordination helped to set up SNF after I discussed these concerns with the care mgr to promote best outcomes for healing. The area of induration surrounding the drained abscess continued to get softer and erythema resolved completely. General surgery recommended local wound care and he will need to follow-up with general surgery, Dr. Guerrero, outpatient and will have local wound care under direction of general surgery through [facility]. He will continue IV Ancef through 06/08/20 at [facility] per infectious disease recommendations, PICC in place. He was discharged in hemodynamically stable on the morning of 05/19/20. Please see additional diagnoses below for further details regarding his hospital stay. (2) Sepsis: Code(s): A41.9 - Sepsis, unspecified organism Status: Acute Assessment and Plan: The patient met sepsis criteria on admission with tachycardia, fever, and leukocytosis in the setting of infection secondary to abscess of back with MSSA bacteremia. Lactic acid 1.7. T-max of 100.7? 05/11/20. He was afebrile since 05/11/20. Leukocytosis and tachycardia resolved. He will continue IV ancef through 06/08/20 under the direction of infectious disease at [facility]. (3) Bacteremia: Code(s): R78.81 - Bacteremia Status: Acute Assessm
--- NOTE | 2020-05-19 11:17 | PCNFU ---
Nutrition Follow-Up Complete: Inadequate oral intake related to poor appetite as evidenced by poor meal consumption and weight loss of 70 lbs. in the last year. Goal: Meet estimated nutritional needs. Patient has met current goal. No new goal. Pt current nutrition is a Low-Fat, Diabetic Consistent Carbohydrate Diet. Last recorded weight is 73.1 kg. Recommend re-weighing patient. Bowel Motility: + BM on 05/17 Labs Reviewed: Hgb 12.3, Hct 35.7, Na 136, Cr 0.6, Glu 173 Meds Noted: Novolog, Lantus, Cymbalta, Glucophage, Seroquel, Protonix, Lyrica Additional Notes: Spoke with patient's nurse. She stated that patient is eating 100% of meals with no real changes. Nurse thinks patient will be discharged today. Monitor patients labs, medications, weight, and oral intake every 5 days.
--- NOTE | 2020-05-19 12:39 | PCNSR ---
On 05/19/20, the student, Margaux Ward, provided care and completed [facility] documentation on this patient. I have reviewed the student's documentation and agree with the findings.
--- NOTE | 2020-05-26 08:59 | PC.NURSE ---
blood cx negative
--- NOTE | 2020-05-29 16:01 | PC.NURSE ---
blood cx are negative. randolph
== END 2020-05-19 12:14 | DRG 710 ==
LOC: ANHED 19:34 → ANH3MED 05-12 07:45
PROVIDERS: Physician Assistant; Admitting Provider Internal Medicine; Emergency Provider Nurse Practitioner; Visit Provider Physician Assistant
DX: A41.01 Sepsis due to Methicillin susceptible Staphylococcus aureus (principal); L02.212 Cutaneous abscess of back [any part, except buttock and flank]; L03.312 Cellulitis of back [any part except buttock and flank]; B95.61 Methicillin susceptible Staphylococcus aureus infection as the cause of diseases classified elsewhere; E11.42 Type 2 diabetes mellitus with diabetic polyneuropathy; L40.9 Psoriasis, unspecified; Z20.822 Contact with and (suspected) exposure to COVID-19; K80.10 Calculus of gallbladder with chronic cholecystitis without obstruction; R63.4 Abnormal weight loss; I10 Essential (primary) hypertension; D63.8 Anemia in other chronic diseases classified elsewhere; K40.20 Bilateral inguinal hernia, without obstruction or gangrene, not specified as recurrent; K21.9 Gastro-esophageal reflux disease without esophagitis; K58.9 Irritable bowel syndrome, unspecified; R47.02 Dysphasia; Z79.4 Long term (current) use of insulin; Z87.891 Personal history of nicotine dependence
CPT/HCPCS: 10060; 36415; 36569; 70450; 71046; 72129; 72156; 72157; 72158; 73620; 76705; 80048; 80053; 80202; 81001; 82010; 82140; 82274; 82607; 82728; 82746; 82948; 83036; 83540; 83550; 83605; 83735; 84443; 85025; 85027; 86140; 86703; 87040; 87070; 87147; 87186; 87205; 93005; 93880; 93970; 96361; 96365; 96366; 96367; 96375; 97110; 97116; 97161; 97165; 97530; 97535; 99285; A9270; A9577; C1751; C9803; G0378; G0379; G0432; J0131; J0690; J0743; J1650; J1815; J2270; J3370; J7040; Q9967; U0003; U0005